=== PATIENT | male | born 1935 | race Caucasian/White ===

== ENCOUNTER 2022-07-20 15:06 | Inpatient (IN) ==
[2022-07-20] MEDS ORDERED: IOPAMIDOL 100 ML BOTTLE IV ONE (15:07)
[2022-07-20 17:35] LABS: POC Calcium, Ionized 1.14 (1.16-1.32); POC Creatinine 0.7 (0.6-1.2); POC Potassium 3.4 (3.3-5.1)
[2022-07-20 19:18] LABS: Basophils # (Auto) 0.02 K/mcL (0.00-0.30); Basophils % (Auto) 0.4 % (0.0-2.0); Eosinophils # (Auto) 0.05 K/mcL (0.00-0.70); Eosinophils % (Auto) 0.9 % (0.0-7.0); Hematocrit 40.8 % (40.1-51.0); Hemoglobin 14.5 g/dL (13.7-17.5); Mean Cell Volume 94.2 fL (80.0-100.0); Mean Corpuscular HGB Conc 35.5 g/dL (31.0-36.0); Mean Platelet Volume 8.9 fL (8.8-12.5); Monocytes # (Auto) 0.52 K/mcL (0.10-0.90); Monocytes % (Auto) 9.6 % (1.0-12.0); Neutrophils % (Auto) 77.5 % (38.0-78.0); Platelet Count 208 K/mcL (140-440); RBC 4.33 M/mcL (4.63-6.08); Red Cell Distribution Width 13.5 % (11.5-14.5); WBC 5.4 K/mcL (4.5-11.0)
--- NOTE | 2022-07-20 19:22 | XRay Report ---
HISTORY: Increased weakness, skin cancer FINDINGS: A thin linear band of scar or discoid atelectasis is present above the left costophrenic sulcus. The lungs are otherwise clear and well expanded. There is no evidence of metastasis. The heart size and pulmonary vasculature are normal. The mediastinum, sumaya and pleura are normal. No skeletal lesion is seen except for mild arthritis in the left shoulder. IMPRESSION: Normal exam Interpreted and Authenticated by: Ezequiel Seaman 07/20/22
[2022-07-20] MEDS ORDERED: 0.9 % SODIUM CHLORIDE 1,000 ML IV ONE (19:27)
[2022-07-20 19:39] LABS: Appearance,Urine CLEAR (Clear); Bilirubin,Urine Negative (Negative); Color,Urine YELLOW; Culture Indicated,Urine No; Glucose,Urine (UA) Negative (Negative); Ketones,Urine 20 mg/dL (Negative); Leukocyte Esterase,Urine Negative /uL (Negative); Mucus,Urine FEW /hpf; Nitrate,Urine Negative (Negative); Protein,Urine Negative (Negative); Urine Blood 0.03 mg/dL (Negative); Urine RBC 7 /hpf (0-3); Urine Squamous Epithelial Cell 0 /hpf (0-4); Urine WBC 6 /hpf (0-4); Urobilinogen,Urine Negative
--- NOTE | 2022-07-20 20:28 | Emergency Department Note ---
Weakness HPI General Chief complaint: Weakness Stated complaint: weakness, N Time Seen by Provider: 07/20/22 16:48 Source: patient Mode of arrival: wheelchair History of Present Illness HPI Narrative: 86-year-old male patient presents to the ER with weakness and general malaise. Patient moved back from to [place] about a month ago and states that since then he has been declining, getting weaker and weaker. He has had a 30 pound uninte ntional weight loss due to poor appetite. He does carry history of atrial fibrillation on chronic Eliquis therapies. He denies chest pain, shortness of breath, cough, dysuria or hematuria, abdominal pain. Related Data Home Medications Medication Instructions Recorded Confirmed Alive Men's 50 Plus Multivit 1 tab PO QDAY 07/20/22 07/21/22 apixaban 5 mg tablet (Eliquis) 5 mg PO BID 07/20/22 07/21/22 [id number] 1 tab PO HS 07/20/22 07/21/22 cholecalciferol (vitamin D3) 25 25 mcg PO QDAY 07/20/22 07/21/22 mcg (1,000 unit) capsule (Vitamin D3) copper 2 mg tablet 2 mg PO QDAY 07/20/22 07/21/22 digoxin 125 mcg (0.125 mg) tablet 125 mcg PO QDAY 07/20/22 07/21/22 diphenhydramine 25 2 tab PO HS PRN Insomnia 07/20/22 07/21/22 mg-acetaminophen 500 mg tablet (Tylenol PM Extra Strength) docusate sodium 100 mg capsule 100 mg PO QDAY 07/20/22 07/21/22 lutein-zeaxanthin 1 tab PO QDAY 07/20/22 07/21/22 midodrine 5 mg tablet 5 mg PO BID 07/20/22 07/21/22 ondansetron 4 mg disintegrating 4 mg PO Q8H PRN Nausea 07/20/22 07/21/22 tablet pantoprazole 40 mg tablet,delayed 40 mg PO QDAY 07/20/22 07/21/22 release silodosin 4 mg capsule 4 mg PO QDAY 07/20/22 07/21/22 tofacitinib 5 mg tablet (Xeljanz) 5 mg PO QDAY 07/20/22 07/21/22 trazodone 50 mg tablet 50 mg PO QHS 07/20/22 07/21/22 metoprolol succinate 25 mg 25 mg PO QDAY 07/21/22 07/21/22 tablet,extended release 24 hr vitamin C-vitamin E capsule 1 cap PO QAM 07/21/22 07/21/22 Allergies Allergy/AdvReac Type Severity Reaction Status Date / Time No Known Drug Allergies Allergy Unverified 07/20/22 15:20 Review of Systems ROS ROS Narrative: Narrative: All systems ED: reviewed and negative except as stated. PFSH Narrative Patient History Narrative: Narrative: Medical/Surgical/Family History All Active Problems (Updated 07/20/22 @ 21:09 by Lalit Cameron MD) Rheumatoid arthritis (Acute) BPH (benign prostatic hyperplasia) (Acute) Atrial fibrillation (Acute) Hyponatremia (Acute) Weakness (Acute) Social History Smoking Status: Never smoker Exam Narrative Narrative: General: AOx3, NAD, nontoxic appearing. Pleasant and conversant. HEENT: PERRL, EOMI, normocephalic. Moist mucous membranes. Normal facies and normal dentition. Chest: Symmetric, no pain to palpation Respiratory: Lungs clear to auscultation bilaterally. No respiratory distress. Unlabored breathing. Heart: Tachycardic rate and irregular rhythm, no murmurs/clicks/rubs. Abdomen: Non-tender, Non distended, normal bowel tones. No organomegaly. Extremities: Warm and well perfused. No edema. DP 2+ bilaterally. No venous stasis. Neuro: No focal deficits. Cranial nerves II-XII grossly normal. Skin: Warm dry, no rashes or lesions, no cyanosis. Psych: Normal mood and affect Heme/Lymph: No abnormal bruising Course Course Course Narrative: 86-year-old male presents for progressive weakness and unintentional weight loss Reevaluation(s) Reevaluation #1: Obtain basic labs, UA, chest x-ray, EKG Reevaluation #2: Chemistry panel with a sodium of 129 UA nitrite and leukocyte esterase negative CBC without leukocytosis or left shift Chest x-ray is negative EKG shows atrial fibrillation with a rate of 97 bpm, no concerning ST segment elevations or abnormalities to suggest ischemia. There is evidence of left ventricular hypertrophy. Reevaluation #3: Patient's heart rate has been as high as the 120s. He may be a little bit dry given his recent history and so we will give him 1 L of IV fluids Vital Signs Vital signs: Vital Signs Temperature 36.5 C 07/20/22 15:12 Pulse Rate 89 07/20/22 15:12 Respiratory Rate 18 07/20/22 15:12 Blood Pressure 131/80 07/20/22 15:12 Pulse Oximetry (%) 97 07/20/22 15:12 Oxygen Delivery Method Room Air 07/20/22 15:12 Temperature 36.9 C 07/20/22 22:35 Pulse Rate 59 L 07/21/22 02:02 Respiratory Rate 15 07/21/22 02:02 Blood Pressure 139/83 07/21/22 02:02 Pulse Oximetry (%) 97 07/21/22 02:02 Oxygen Delivery Method Room Air 07/21/22 02:02 MDM MDM Narrative Medical decision making narrative: Hyponatremia Weakness Dehydration Patient meets criteria for admission. He will need rehab therapies and stabilization of his hyponatremia. I have reached out to the hospitalist for admission and he has been accepted. CT of the chest abdomen pelvis with contras t has been ordered to rule out neoplasm as cause for his unintentional weight loss and hyponatremia. Lab Data 07/20/22 18:30 Labs: Lab Results 07/20/22 07/20/22 07/20/22 Range/Units 17:33 17:33 18:30 WBC 5.4 (4.5-11.0) K/mcL RBC 4.33 L (4.63-6.08) M/mcL Hgb 14.5 (13.7-17.5) g/dL Hct 40.8 (40.1-51.0) % POC Hct 43.0 (41-55) MCV 94.2 (80.0-100.0) fL MCH 33.5 (26.0-34.0) pg MCHC 35.5 (31.0-36.0) g/dL RDW 13.5 (11.5-14.5) % Plt Count 208 (140-440) K/mcL MPV 8.9 (8.8-12.5) fL Immature Gran % (Auto) 0.6 H (0.0-0.5) % Neut % (Auto) 77.5 (38.0-78.0) % Lymph % (Auto) 11.0 L (15.5-49.0) % [place] % (Auto) 9.6 (1.0-12.0) % Eos % (Auto) 0.9 (0.0-7.0) % Baso % (Auto) 0.4 (0.0-2.0) % Lymph # (Auto) 0.60 L (1.50-4.80) K/mcL [place] # (Auto) 0.52 (0.10-0.90) K/mcL Eos # (Auto) 0.05 (0.00-0.70) K/mcL Baso # (Auto) 0.02 (0.00-0.30) K/mcL Immature Gran # 0.03 (0.00-0.05) K/mcl Absolute Neutrophils 4.21 (1.80-8.00) K/mcL POC Sodium 129 L (133-145) POC Potassium 3.4 (3.3-5.1) POC Chloride 92 L (96-108) POC Total CO2 27.0 (22-30) POC BUN 16 (6-20) POC Creatinine 0.7 (0.6-1.2) POC Glucose 113 H (70-105) POC WB Ioniz Calcium 1.14 L (1.16-1.32) Random Cortisol 20.5 ug/dL Urine Color Urine Appearance (Clear) Urine pH (5.0-9.0) Ur Specific [place] (1.000-1.035) Urine Protein (Negative) mg/dL Urine Glucose (UA) (Negative) mg/dL Urine Ketones (Negative) mg/dL Urine Occult Blood (Negative) mg/dL Urine Nitrate (Negative) Urine Bilirubin (Negative) mg/dL Urine Urobilinogen mg/dL Ur Leukocyte Esterase (Negative) /uL Urine RBC (0-3) /hpf Urine WBC (0-4) /hpf Ur Squamous Epith Cells (0-4) /hpf Urine Bacteria (0) /hpf Urine Mucus (None) /hpf Ur Culture Indicated? 07/20/22 Range/Units 18:48 WBC (4.5-11.0) K/mcL RBC (4.63-6.08) M/mcL Hgb (13.7-17.5) g/dL Hct (40.1-51.0) % POC Hct (41-55) MCV (80.0-100.0) fL MCH (26.0-34.0) pg MCHC (31.0-36.0) g/dL RDW (11.5-14.5) % Plt Count (140-440) K/mcL MPV (8.8-12.5) fL Immature Gran % (Auto) (0.0-0.5) % Neut % (Auto) (38.0-78.0) % Lymph % (Auto) (15.5-49.0) % [place] % (Auto) (1.0-12.0) % Eos % (Auto) (0.0-7.0) % Baso % (Auto) (0.0-2.0) % Lymph # (Auto) (1.50-4.80) K/mcL [place] # (Auto) (0.10-0.90) K/mcL Eos # (Auto) (0.00-0.70) K/mcL Baso # (Auto) (0.00-0.30) K/mcL Immature Gran # (0.00-0.05) K/mcl Absolute Neutrophils (1.80-8.00) K/mcL POC Sodium (133-145) POC Potassium (3.3-5.1) POC Chloride (96-108) POC Total CO2 (22-30) POC BUN (6-20) POC Creatinine (0.6-1.2) POC Glucose (70-105) POC WB Ioniz Calcium (1.16-1.32) Random Cortisol ug/dL Urine Color Yellow Urine Appearance Clear (Clear) Urine pH 7.0 (5.0-9.0) Ur Specific [place] 1.010 (1.000-1.035) Urine Protein Negative (Negative) mg/dL Urine Glucose (UA) Negative (Negative) mg/dL Urine Ketones 20 A (Negative) mg/dL Urine Occult Blood 0.03 (Negative) mg/dL Urine Nitrate Negative (Negative) Urine Bilirubin Negative (Negative) mg/dL Urine Urobilinogen Negative mg/dL Ur Leukocyte Esterase Negative (Negative) /uL Urine RBC 7 H (0-3) /hpf Urine WBC 6 H (0-4) /hpf Ur Squamous Epith Cells 0 (0-4) /hpf Urine Bacteria None (0) /hpf Urine Mucus Few A (None) /hpf Ur Culture Indicated? No Discharge Plan Patient/Caregiver Discharge Instructions Pt seen by TAKER AWAY/PA only: Yes Clinical Impression: Hyponatremia, Weakness Patient Disposition: Xfer As Inpt ([facility]) Discharge Date/Time: 07/20/22 22:15 Discharge Location: [facility]
[2022-07-20] MEDS ORDERED: ACETAMINOPHEN/DIPHENHYDRAMINE 1 TABLET PO PRN (20:51)
[2022-07-20] MEDS ORDERED: CALCIUM MAGNESIUM ZINC PO SCH (21:00)
--- NOTE | 2022-07-20 21:14 | Internal Med History&Physical ---
HPI History of Present Illness Patient information: Note initiated : 07/20/22 at 9:02 pm Service Date, if different from initiated Date: [] Patient: Alo Archibald a 86 y/o M admitted on for weakness, N. Chief Complaint: [weakness] Chief complaint: weakness History of present illness: Mr. Archibald is a 86 year old M history of atrial fibrillation's, skin cancer, BPH, rheumatoid arthritis, presenting with general body weakness, rate loss, and loss of appetite over the past month and a half. Patient had an episode of fall about 1 and half month ago. He is coming of 30 pound weight loss over the same period of time. He is coming of progressive general body weakness and loss of appetite over the same. Time. He denies any respiratory symptoms including shortness of breath cough or respiratory wheezings. He is coming of headache right now but denies any other discomfort or pain at the moment. He recently moved from [place] to [place] after the of his last summer. Vital signs significant for tachycardia heart rate up to the 120s beats per minute in atrial fibrillation's. Labs significant for mild hyponatremia serum sodium 129. Chest x-ray unremarkable. Admission request is called for mild troponin natremia as well as general weakness. Constitutional Constitutional: Present headache(s), weakness and weight loss; Absent chills, e xcessive sweating, fatigue or fever(s) Additional comments: loss of appetite EENT Eyes: Absent blurry vision, change in vision, loss of vision or other visual disturbances Ears: Absent decreased hearing or tinnitus Nose, mouth and throat: Absent abnormal hearing, dry mouth, headache(s), nasal congestion or sore throat Cardiovascular Cardiovascular: Absent chest pain, chest pain at rest, edema, irregular heart rhythm or palpatations Respiratory Respiratory: Absent cough, dyspnea or wheezing Gastrointestinal Gastrointestinal: Absent abdominal pain, constipation, diarrhea, nausea or vomiting Musculoskeletal Musculoskeletal: Absent back pain, deformity, limited range of motion, muscle cramps, muscle weakness or numbness Integumentary Integumentary: Absent lesions, rash or wounds Neurological Neurological: Absent focal weakness, headache(s) or numbness Psychiatric Psychiatric: Absent anxiety, depression or hallucinations PFSH PFSH All Active Problems (Updated 07/20/22 @ 21:09 by Lalit Cameron MD) Rheumatoid arthritis (Acute) BPH (benign prostatic hyperplasia) (Acute) Atrial fibrillation (Acute) Hyponatremia (Acute) Weakness (Acute) Social History smoking status: Never smoker MEDS/ALLERGIES Home Medications and Allergies Home Medications Medication Instructions Recorded Confirmed Type Alive Men's 50 Plus Multivit 1 tab PO QDAY 07/20/22 07/20/22 History apixaban 5 mg tablet (Eliquis) 5 mg PO BID 07/20/22 07/20/22 History [id number] 1 tab PO HS 07/20/22 07/20/22 History carbamazepine 100 mg 100 mg PO BID 07/20/22 07/20/22 History capsule,extended release [id number] cholecalciferol (vitamin D3) 25 25 mcg PO QDAY 07/20/22 07/20/22 History mcg (1,000 unit) capsule (Vitamin D3) copper 2 mg tablet 2 mg PO QDAY 07/20/22 07/20/22 History digoxin 125 mcg (0.125 mg) tablet 125 mcg PO QDAY 07/20/22 07/20/22 History diphenhydramine 25 2 tab PO HS PRN Insomnia 07/20/22 07/20/22 History mg-acetaminophen 500 mg tablet (Tylenol PM Extra Strength) docusate sodium 100 mg capsule 100 mg PO QDAY 07/20/22 07/20/22 History lutein-zeaxanthin 1 tab PO QDAY 07/20/22 07/20/22 History metoprolol succ 25 25 tab PO QDAY 07/20/22 07/20/22 History mg-hydrochlorothiazide 12.5 mg tablet,ext.rel 24 hr midodrine 5 mg tablet 5 mg PO BID 07/20/22 07/20/22 History ondansetron 4 mg disintegrating 4 mg PO Q8H PRN Nausea 07/20/22 07/20/22 History tablet pantoprazole 40 mg tablet,delayed 40 mg PO QDAY 07/20/22 07/20/22 History release silodosin 4 mg capsule 4 mg PO QDAY 07/20/22 07/20/22 History tofacitinib 5 mg tablet (Xeljanz) 5 mg PO QDAY 07/20/22 07/20/22 History trazodone 50 mg tablet 50 mg PO QHS 07/20/22 07/20/22 History Allergies Allergy/AdvReac Type Severity Reaction Status Date / Time No Known Drug Allergies Allergy Unverified 07/20/22 15:20 EXAM Constitutional Vitals: Temp Pulse Resp BP Pulse Ox O2 Del Method 36.5 C 81 20 138/92 98 Room Air 07/20/22 15:12 07/20/22 20:46 07/20/22 20:46 07/20/22 20:46 07/20/22 20:46 07/20/22 15:12 General appearance: cooperative and no acute distress Head Head exam: Present atraumatic and normocephalic Eye Eye exam: Present EOMI and PERRL ENT ENT exam: Present mucous membranes moist, normal exam and normal external ear exam Neck Neck exam: Present normal inspection; Absent lymphadenopathy, tenderness or thyromegaly Respiratory Respiratory exam: Absent accessory muscle use, respiratory distress or wheezes Cardiovascular Cardiovascular exam: Present irregular rhythm and tachycardia; Absent JVD GI/Abdominal GI/Abdominal exam: Present normal bowel sounds and soft; Absent organomegaly or tenderness Rectal Rectal exam: Present deferred Extremities Exam Extremities exam: Present full ROM, normal capillary refill and normal inspection; Absent tenderness Neurological Exam Neurological exam: Present alert, CN II-XII intact and oriented X3; Absent motor sensory deficit Psychiatric Psychiatric exam: Present normal affect and normal mood; Absent anxious or depressed Skin Skin exam: Present dry and intact DATA Data Completed and Pending Labs: Labs from last 24 hours 07/20/22 07/20/22 07/20/22 18:48 18:30 17:33 WBC 5.4 RBC 4.33 L Hgb 14.5 Hct 40.8 POC Hct 43.0 MCV 94.2 MCH 33.5 MCHC 35.5 RDW 13.5 Plt Count 208 MPV 8.9 Immature Gran % (Auto) 0.6 H Neut % (Auto) 77.5 Lymph % (Auto) 11.0 L [place] % (Auto) 9.6 Eos % (Auto) 0.9 Baso % (Auto) 0.4 Lymph # (Auto) 0.60 L [place] # (Auto) 0.52 Eos # (Auto) 0.05 Baso # (Auto) 0.02 Immature Gran # 0.03 Absolute Neutrophils 4.21 POC Sodium 129 L POC Potassium 3.4 POC Chloride 92 L POC Total CO2 27.0 POC BUN 16 POC Creatinine 0.7 POC Glucose 113 H POC WB Ioniz Calcium 1.14 L Urine Color Yellow Urine Appearance Clear Urine pH 7.0 Ur Specific [place] 1.010 Urine Protein Negative Urine Glucose (UA) Negative Urine Ketones 20 A Urine Occult Blood 0.03 Urine Nitrate Negative Urine Bilirubin Negative Urine Urobilinogen Negative Ur Leukocyte Esterase Negative Urine RBC 7 H Urine WBC 6 H Ur Squamous Epith Cells 0 Urine Bacteria None Urine Mucus Few A Ur Culture Indicated? No A/P Assessment and plan (1) Hyponatremia: Status: Acute (2) Weakness: Status: Acute (3) Atrial fibrillation: Status: Acute (4) BPH (benign prostatic hyperplasia): Status: Acute (5) Rheumatoid arthritis: Status: Acute Narrative A/P Narrative: Assessment and Plans: 1. General weakness: Observation PCU Physical therapy evaluation and treatment Treat any underlying cause for weakness, see below Whole body CT w/ contrast to rule out malignancy such as non small cell cancer Consider Megace as appetite stimulant if active cancer is identified 2. Mild hyponatremia: NS@100cc/hr CMP in the morning to trend serum sodium level Whole body CT w/ contrast to rule out malignancy such as non small cell cancer TSH with reflexive free T4 Cortisol, random and AM 3. Atrial fibrillation: Metoprolol ER Digoxin Eliquis 4. Rheumatoid arthritis: Tofacitinib 5. BPH: Silodosin GI ppx: not currently indicated DVT ppx: Eliquis Code status: Full Prognosis: guarded Disposition: observation PCU; PT Time Spent With Patient Time: Total time spent is greater than 50% in coordination of care (as documented) at patient's floor/unit and/or counseling patient: Initial: Total time with patient: 55 - 74 minutes
[2022-07-20] MEDS ORDERED: ONDANSETRON 4 MG/2 ML VIAL IV PRN (22:34)
[2022-07-20] MEDS ORDERED: LACTULOSE 20 GM/30 ML ORAL.SOL PO PRN (22:34)
[2022-07-20] MEDS ORDERED: IPRATROPIUM/ALBUTEROL 3 ML AMPUL.NEB NEB PRN (22:34)
[2022-07-20] MEDS ORDERED: METOPROLOL TARTRATE 5 MG/5 ML VIAL IV ONE (22:39)
[2022-07-20] MEDS: METOPROLOL TARTRATE 5 MG/5 ML VIAL IV PRN (22:40)
[2022-07-20] MEDS: 0.9 % SODIUM CHLORIDE 1,000 ML IV SCH (22:57)
[2022-07-20] MEDS: DOCUSATE SODIUM 100 MG CAPSULE PO SCH (22:57)
[2022-07-20] MEDS: traZODone HCL 50 MG TABLET PO SCH (22:58)
[2022-07-20] MEDS: 0.9 % SODIUM CHLORIDE 10 ML SYRINGE IV SCH (22:58)
[2022-07-20] MEDS: APIXABAN 5 MG TABLET PO SCH (23:18)
[2022-07-21] MEDS: ACETAMINOPHEN 325 MG TABLET PO PRN ×3 (01:25→20:40)
[2022-07-21] MEDS: diphenhydrAMINE 25 MG CAPSULE PO PRN ×2 (01:26→20:41)
[2022-07-21] MEDS ORDERED: METOPROLOL TARTRATE 5 MG/5 ML VIAL IV ONE (04:53)
[2022-07-21] MEDS: METOPROLOL TARTRATE 5 MG/5 ML VIAL IV PRN ×2 (04:56→16:24)
[2022-07-21] MEDS: 0.9 % SODIUM CHLORIDE 10 ML SYRINGE IV SCH ×3 (05:11→20:42)
[2022-07-21] MEDS: PANTOPRAZOLE 40 MG TABLET PO SCH (07:11)
--- NOTE | 2022-07-21 07:41 | Cat Scan Report ---
History: Hyponatremia, weight loss, skin cancer TECHNIQUE: Following injection of intravenous nonionic contrast the patient was imaged during the portal venous phase from the thoracic inlet through the symphysis pubis. Sagittal, coronal and MIPS images were acquired. Five minute delayed images of the upper abdomen were also obtained. The radiation exposure was limited using dose reduction technology. FINDINGS: Above the minor fissure, in the anterior segment of the right upper lobe there is a spiculated 1 cm nodule. This was not identifiable on the preceding chest x-ray. There is no associated adenopathy in the mediastinum or sumaya. There are linear opacities in the posterior and medial basal segments of the right lower lobe and inferior segment of the lingula which may be a combination of scar and discoid atelectasis. There is no evidence of pneumonia or pleural effusion. No emphysema is present. The aorta is normal. The heart is normal in size and contour. Small amount of plaque is present in the left main coronary. ABDOMEN: There are multiple simple cysts scattered throughout the liver. Largest is in the left lobe measures 3.5 cm. No solid mass is present. The overall size of the liver is normal and the parenchyma is homogeneous. The gallbladder is normal with no calcified stones or thickening of the wall. The bile ducts are nondilated. The spleen is normal in size and homogeneous. The adrenals are normal and symmetric. There are multiple renal cysts, left greater than right. The largest is located posteriorly in the upper pole of the left kidney and measures 6.3 x 8.7 cm. No solid mass or hydronephrosis are present in either kidney. There is a solitary nonobstructing calyceal stone located anteriorly in the lower third of the right kidney, which measures 6 x 7 mm. Urinary bladder is unopacified but appears normal. The prostate is very small. Has the patient received therapy for prostate in the past? No mass, adenopathy, ascites or abscess are present in the abdomen or pelvis. There are multiple noninflamed diverticula in the sigmoid colon and there is a moderate amount stool in the large bowel. Small intestine is normal. The stomach appears normal. 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 No bone metastasis are detected. IMPRESSION: 1 cm mass in the anterior segment right upper lobe. This could be a lung cancer. If the patient is a candidate for therapy, this could be further evaluated by PET/CT. Cysts in the liver and both kidneys. Diverticulosis without diverticulitis Interpreted and Authenticated by: Ezequiel Seaman 07/21/22
[2022-07-21] MEDS ORDERED: DIGOXIN 125 MCG TABLET PO SCH (09:00)
[2022-07-21] MEDS ORDERED: COPPER 2 MG PO SCH (09:00)
[2022-07-21] MEDS ORDERED: LUTEIN ZEAXANTHIN PO SCH (09:00)
[2022-07-21] MEDS ORDERED: DOCUSATE SODIUM 100 MG CAPSULE PO SCH (09:00)
[2022-07-21] MEDS: 0.9 % SODIUM CHLORIDE 1,000 ML IV SCH ×2 (09:04→19:19)
[2022-07-21] MEDS: APIXABAN 5 MG TABLET PO SCH ×2 (09:05→20:41)
[2022-07-21] MEDS: MIDODRINE 5 MG TABLET PO SCH ×2 (09:05→17:41)
[2022-07-21] MEDS: VITAMIN D3 25 MCG TABLET PO SCH (09:05)
[2022-07-21] MEDS: METOPROLOL SUCCINATE 25 MG TAB.XL.24H PO SCH (09:05)
[2022-07-21] MEDS: MULTIVIT,THER IRON,CA,FA & MIN 1 TABLET PO SCH (09:05)
[2022-07-21] MEDS: HYDROCHLOROTHIAZIDE 12.5 MG CAPSULE PO SCH (09:05)
[2022-07-21] MEDS: DOCUSATE SODIUM 100 MG CAPSULE PO SCH ×2 (09:08→20:40)
[2022-07-21 10:22] LABS: Basophils # (Auto) 0.04 K/mcL (0.00-0.30); Basophils % (Auto) 0.9 % (0.0-2.0); Eosinophils # (Auto) 0.06 K/mcL (0.00-0.70); Eosinophils % (Auto) 1.4 % (0.0-7.0); Hemoglobin 13.8 g/dL (13.7-17.5); Lymphocytes # (Auto) 0.62 K/mcL (1.50-4.80); Lymphocytes % (Auto) 14.3 % (15.5-49.0); Mean Cell Volume 94.4 fL (80.0-100.0); Mean Corpuscular HGB Conc 35.4 g/dL (31.0-36.0); Mean Platelet Volume 8.9 fL (8.8-12.5); Monocytes # (Auto) 0.48 K/mcL (0.10-0.90); Neutrophils % (Auto) 71.9 % (38.0-78.0); Platelet Count 189 K/mcL (140-440); RBC 4.13 M/mcL (4.63-6.08); Red Cell Distribution Width 13.6 % (11.5-14.5); WBC 4.4 K/mcL (4.5-11.0)
[2022-07-21 10:36] LABS: ALT/SGPT 28 U/L (<40); AST/SGOT 19 U/L (<40); Albumin 2.8 gm/dL (3.2-5.2); Albumin/Globulin Ratio 0.9 (1.0-2.3); Alkaline Phosphatase 78 U/L (39-117); Bilirubin,Total 0.3 mg/dL (0.1-1.0); Blood Urea Nitrogen 10 mg/dL (8-23); Calcium 8.4 mg/dL (8.6-10.4); Carbon Dioxide 20 mmol/L (22-30); Chloride 99 mmol/L (96-108); Glomerular Filtration Rate 90; Glucose 97 mg/dL (70-105)
--- NOTE | 2022-07-21 10:36 | Internal Med Progress Note ---
SUBJECTIVE Subjective Patient information: Note initiated : 07/21/22 at 10:32 am Service Date, if different from initiated Date: [] Patient: Alo Archibald a 86 y/o M admitted on 07/20/22 for weakness, N. Chief Complaint: [] Interval history: Mr. Archibald is a 86 year old M history of atrial fibrillation's, skin cancer, BPH, rheumatoid arthritis, presenting with general body weakness, rate loss, and loss of appetite over the past month and a half. Patient had an episode of fall about 1 and half month ago. He is coming of 30 pound weight loss over the same period of time. He is coming of progressive general body weakness and loss of appetite over the same. Time. He denies any respiratory symptoms including shortness of breath cough or respiratory wheezings. He is coming of headache right now but denies any other discomfort or pain at the moment. He recently moved from [place] to [place] after the of his last summer. Vital signs significant for tachycardia heart rate up to the 120s beats per minute in atrial fibrillation's. Labs significant for mild hyponatremia serum sodium 129. Chest x-ray unremarkable. Admission request is called for mild troponin natremia as well as general weakness. 07/21: Patient was tested positive for COVID-pneumonia but he is tolerating room air. Whole-body CT with contrast showing a 1 cm mass in the right upper quadrant of the lung. No any satellite masses seen. Patient is still committing of profound weakness. Morning labs pending. He denies any shortness of breath or cough or wheezing. He is coming of chills but denies any fever or diaphoresis. Physical therapist evaluated the patient and recommend SNF placement. Patient said that he need to talk to his family regarding discharged plan. We changed the patient from observation to MedSurg status to PCU while awaiting placement decisions. Continue IV fluid for hyponatremia while awaiting morning labs. Since the patient has been symptomatic for more than 10 days from COVID- pneumonia, will not initiate Paxlovid or Remdesivir. Constitutional Vitals: Vital Signs Temp Pulse Resp BP Pulse Ox O2 Del Method 36.4 C 60 13 148/77 98 Room Air 07/21/22 07:04 07/21/22 08:01 07/21/22 10:01 07/21/22 10:01 07/21/22 10:01 07/21/22 10:01 Period Temp Pulse Resp BP Sys/Suarez Pulse Ox O2 Del Method O2 Flow Rate Last 24 Hr 36.4 C-36.9 C 59-143 11-21 98-167/77-116 93-99 Room Air-Room Air Intake and Output 07/20/22 07/21/22 07/21/22 19:59 03:59 11:59 Intake Total 1000 1940 Output Total 325 1025 Balance 675 915 Weight 78.471 kg 79.243 kg Intake & Output: Intake & Output 07/20/22 07/21/22 07/21/22 19:59 03:59 11:59 Intake Total 1000 1940 Output Total 325 1025 Balance 675 915 Weight 78.471 kg 79.243 kg Intake: IV 1000 1000 Sodium Chloride 0.9% 1,000 ml @ 1000 1000 100 mls/hr IV .Q10H [facility] Rx#: [id number] Oral 940 Output: Void Amount 325 1025 Other: Urine Appearance Clear Clear Urine Color Bright Yellow Yellow Urine Odor Strong General appearance: cooperative, disheveled and no acute distress Head Head exam: Present atraumatic and normal inspection Eye Eye exam: Present normal appearance ENT ENT exam: Present mucous membranes moist, normal exam and normal external ear e xam Neck Neck exam: Present normal inspection Respiratory Respiratory exam: Present normal respiratory exam Cardiovascular Cardiovascular exam: Present irregular rhythm GI/Abdominal GI/Abdominal exam: Present normal bowel sounds Back Exam Back exam: Present normal inspection Neurological Exam Neurological exam: Present alert and oriented X3 Skin Skin exam: Present intact and warm OBJ DATA Labs 07/21/22 06:04 07/21/22 06:04 Labs: Abnormal Lab Results 07/21/22 07/20/22 07/20/22 06:04 18:48 18:30 WBC 4.4 L RBC 4.13 L 4.33 L Hct 39.0 L Immature Gran % (Auto) 0.6 H Lymph % (Auto) 14.3 L 11.0 L Lymph # (Auto) 0.62 L 0.60 L POC Sodium POC Chloride POC Glucose POC WB Ioniz Calcium Urine Ketones 20 A Urine RBC 7 H Urine WBC 6 H Urine Mucus Few A 07/20/22 17:33 WBC RBC Hct Immature Gran % (Auto) Lymph % (Auto) Lymph # (Auto) POC Sodium 129 L POC Chloride 92 L POC Glucose 113 H POC WB Ioniz Calcium 1.14 L Urine Ketones Urine RBC Urine WBC Urine Mucus Meds: Medications Acetaminophen (Acetaminophen 325 Mg Tablet) 650 mg PO HSP PRN PRN Reason: Insomnia Last Admin: 07/21/22 01:25 Dose: 650 mg Acetaminophen (Acetaminophen 325 Mg Tablet) 650 mg PO Q6HP PRN; Protocol PRN Reason: Per Pain Protocol/Fever > 101 Last Admin: 07/21/22 07:09 Dose: 650 mg Albuterol/Ipratropium (Ipratropium/Albuterol 3 Ml Ampul.Neb) 3 ml NEB Q4HRT PRN PRN Reason: Wheezing Apixaban (Apixaban 5 Mg Tablet) 5 mg PO BID [facility] Last Admin: 07/21/22 09:05 Dose: 5 mg Digoxin (Digoxin 125 Mcg Tablet) 125 mcg PO QDAY [facility] Last Admin: 07/21/22 09:05 Dose: 125 mcg Diphenhydramine HCl (Diphenhydramine 25 Mg Capsule) 25 mg PO HSP PRN PRN Reason: Insomnia Last Admin: 07/21/22 01:26 Dose: 25 mg Docusate Sodium (Docusate Sodium 100 Mg Capsule) 100 mg PO BID [facility] Last Admin: 07/21/22 09:08 Dose: 100 mg Hydrochlorothiazide (Hydrochlorothiazide 12.5 Mg Capsule) 12.5 mg PO DAILY [facility] Last Admin: 07/21/22 09:05 Dose: 12.5 mg Sodium Chloride (Sodium Chloride 0.9%) 1,000 mls @ 100 mls/hr IV .Q10H [facility] Last Admin: 07/21/22 09:04 Dose: 100 mls/hr Iron Carb/Multivit/[place]/Folic Acid (Multivit,Ther Iron,Ca,Fa & Min 1 Tablet) 1 tab PO QDAY [facility] Last Admin: 07/21/22 09:05 Dose: 1 tab Lactulose (Lactulose 20 Gm/30 Ml Oral.Aileen) 10 gm PO DAILYP PRN PRN Reason: Constipation Metoprolol Succinate (Metoprolol Succinate 25 Mg Tab.Xl.24h) 25 mg PO DAILY [facility] Last Admin: 07/21/22 09:05 Dose: 25 mg Metoprolol Tartrate (Metoprolol Tartrate 5 Mg/5 Ml Vial) 5 mg IV Q1H PRN PRN Reason: Tachyarrhythmias Last Admin: 07/21/22 04:56 Dose: 5 mg Midodrine (Midodrine 5 Mg Tablet) 5 mg PO BID@0900,1800 [facility] Last Admin: 07/21/22 09:05 Dose: 5 mg Ondansetron HCl (Ondansetron 4 Mg/2 Ml Vial) 4 mg IV Q4HP PRN; Protocol PRN Reason: Nausea And Vomiting Pantoprazole Sodium (Pantoprazole 40 Mg Tablet) 40 mg PO QAMAC [facility] Last Admin: 07/21/22 07:11 Dose: 40 mg Silodosin 4 Mg (Capsule) 1 dose PO QDAY [facility] Tofacitinib [Xeljanz (] 5 Mg Tablet) 1 dose PO QDAY [facility] Potassium Chloride (Potassium Chloride 20 Meq Tablet) 20 meq PO BIDCC [facility] Senna (Sennosides 1 Tablet) 2 tab PO HSP PRN PRN Reason: Constipation Sodium Chloride (0.9 % Sodium Chloride 10 Ml Syringe) 10 ml IV Q8 [facility] Last Admin: 07/21/22 05:11 Dose: Not Given Trazodone HCl (Trazodone Hcl 50 Mg Tablet) 50 mg PO QHS [facility] Last Admin: 07/20/22 22:58 Dose: Not Given Vitamin D (Vitamin D3 25 Mcg Tablet) 25 mcg PO QDAY [facility] Last Admin: 07/21/22 09:05 Dose: 25 mcg A/P Assessment and plan (1) Hyponatremia: Status: Acute (2) Weakness: Status: Acute (3) Atrial fibrillation: Status: Acute (4) BPH (benign prostatic hyperplasia): Status: Acute (5) Rheumatoid arthritis: Status: Acute (6) Mass of upper lobe of right lung: Status: Acute (7) COVID: Status: Acute Narrative A/P Narrative: Assessment and Plans: 1. General weakness: Inpatient PCU Physical therapy evaluation and treatment-->recs. SNF placement Treat any underlying cause for weakness, see below Whole body CT w/ contrast to rule out malignancy such as non small cell cancer Consider Megace as appetite stimulant if active cancer is identified 2. Mild hyponatremia: NS@100cc/hr CMP in the morning to trend serum sodium level Whole body CT w/ contrast to rule out malignancy such as non small cell cancer, see #6 TSH with reflexive free T4, 0.98 Cortisol, random and AM, 20.5 and 17.9, respectively 3. Atrial fibrillation: Metoprolol ER Digoxin Eliquis 4. Rheumatoid arthritis: Tofacitinib 5. BPH: Silodosin 6. Right upper lobe lung mass measuring 1cm: Highly suspect malignancy Will follow up with PET/CT outpatient in [facility] 7. CoVID infection: Since the patient has been symptomatic for more than 10 days from COVID- pneumonia, will not initiate Paxlovid or Remdesivir Isolation: airborne and contact Supplemental oxygen therapy as needed GI ppx: not currently indicated DVT ppx: Eliquis Code status: Full Prognosis: guarded Disposition: Inpatient PCU; PT-->SNF Time Spent With Patient Time: Total time spent is greater than 50% in coordination of care (as documented) at patient's floor/unit and/or counseling patient: Subsequent: Total time with patient: 35 - 49 minutes QUALITY VTE Deep Vein Thrombosis/Pulmonary Embolism Present on Admission: No
[2022-07-21] MEDS: TOFACITINIB 5 MG PO SCH (13:00)
[2022-07-21] MEDS: POTASSIUM CHLORIDE 20 MEQ TABLET PO SCH (17:41)
[2022-07-21] MEDS ORDERED: METOPROLOL TARTRATE 5 MG/5 ML VIAL IV PRN (19:08)
[2022-07-21 19:38] LABS: Digoxin 0.7 ng/mL
[2022-07-21] MEDS: traZODone HCL 50 MG TABLET PO SCH (20:42)
[2022-07-22] MEDS: ACETAMINOPHEN 325 MG TABLET PO PRN ×2 (00:32→05:35)
[2022-07-22] MEDS: 0.9 % SODIUM CHLORIDE 1,000 ML IV SCH (05:37)
[2022-07-22] MEDS: 0.9 % SODIUM CHLORIDE 10 ML SYRINGE IV SCH ×3 (05:53→20:54)
[2022-07-22 07:05] LABS: Basophils # (Auto) 0.04 K/mcL (0.00-0.30); Basophils % (Auto) 0.8 % (0.0-2.0); Eosinophils # (Auto) 0.08 K/mcL (0.00-0.70); Eosinophils % (Auto) 1.7 % (0.0-7.0); Hematocrit 44.2 % (40.1-51.0); Hemoglobin 15.1 g/dL (13.7-17.5); Lymphocytes # (Auto) 0.97 K/mcL (1.50-4.80); Lymphocytes % (Auto) 20.6 % (15.5-49.0); Mean Cell Volume 96.7 fL (80.0-100.0); Mean Corpuscular HGB Conc 34.2 g/dL (31.0-36.0); Mean Platelet Volume 8.8 fL (8.8-12.5); Monocytes # (Auto) 0.61 K/mcL (0.10-0.90); Monocytes % (Auto) 12.9 % (1.0-12.0); Neutrophils % (Auto) 63.4 % (38.0-78.0); Platelet Count 177 K/mcL (140-440); RBC 4.57 M/mcL (4.63-6.08); Red Cell Distribution Width 13.8 % (11.5-14.5); WBC 4.7 K/mcL (4.5-11.0)
[2022-07-22 07:29] LABS: ALT/SGPT 34 U/L (<40); AST/SGOT 26 U/L (<40); Albumin 2.9 gm/dL (3.2-5.2); Albumin/Globulin Ratio 0.9 (1.0-2.3); Alkaline Phosphatase 83 U/L (39-117); Bilirubin,Total 0.4 mg/dL (0.1-1.0); Blood Urea Nitrogen 7 mg/dL (8-23); Calcium 8.2 mg/dL (8.6-10.4); Carbon Dioxide 23 mmol/L (22-30); Chloride 97 mmol/L (96-108); Globulin 3.2 gm/dL (2.2-3.7); Glomerular Filtration Rate 90; Glucose 90 mg/dL (70-105)
[2022-07-22] MEDS: PANTOPRAZOLE 40 MG TABLET PO SCH (07:46)
[2022-07-22] MEDS: POTASSIUM CHLORIDE 20 MEQ TABLET PO SCH ×2 (07:46→16:48)
[2022-07-22] MEDS: HYDROCHLOROTHIAZIDE 12.5 MG CAPSULE PO SCH (08:33)
[2022-07-22] MEDS: MULTIVIT,THER IRON,CA,FA & MIN 1 TABLET PO SCH (08:33)
[2022-07-22] MEDS: DOCUSATE SODIUM 100 MG CAPSULE PO SCH ×2 (08:33→20:53)
[2022-07-22] MEDS: MIDODRINE 5 MG TABLET PO SCH ×2 (08:33→17:52)
[2022-07-22] MEDS: APIXABAN 5 MG TABLET PO SCH ×2 (08:33→20:54)
[2022-07-22] MEDS: TOFACITINIB 5 MG PO SCH (08:34)
[2022-07-22] MEDS: METOPROLOL SUCCINATE 25 MG TAB.XL.24H PO SCH ×3 (08:34→20:53)
[2022-07-22] MEDS: VITAMIN D3 25 MCG TABLET PO SCH (08:34)
[2022-07-22] MEDS ORDERED: MEGESTROL ACETATE 40 MG TABLET PO SCH (09:00)
[2022-07-22] MEDS ORDERED: METOPROLOL SUCCINATE 25 MG TAB.XL.24H PO SCH (09:00)
[2022-07-22] MEDS ORDERED: [UNRECOGNIZED DRUG - OTHER] PO SCH (09:00)
--- NOTE | 2022-07-22 09:05 | Internal Med Progress Note ---
SUBJECTIVE Subjective Patient information: Note initiated : 07/22/22 at 9:00 am Service Date, if different from initiated Date: [] Patient: Alo Archibald a 86 y/o M admitted on 07/21/22 for weakness, N. Chief Complaint: [] Interval history: Mr. Archibald is a 86 year old M history of atrial fibrillation's, skin cancer, BPH, rheumatoid arthritis, presenting with general body weakness, rate loss, and loss of appetite over the past month and a half. Patient had an episode of fall about 1 and half month ago. He is coming of 30 pound weight loss over the same period of time. He is coming of progressive general body weakness and loss of appetite over the same. Time. He denies any respiratory symptoms including shortness of breath cough or respiratory wheezings. He is coming of headache right now but denies any other discomfort or pain at the moment. He recently moved from [place] to [place] after the of his last summer. Vital signs significant for tachycardia heart rate up to the 120s beats per minute in atrial fibrillation's. Labs significant for mild hyponatremia serum sodium 129. Chest x-ray unremarkable. Admission request is called for mild troponin natremia as well as general weakness. 07/21: Patient was tested positive for COVID-pneumonia but he is tolerating room air. Whole-body CT with contrast showing a 1 cm mass in the right upper quadrant of the lung. No any satellite masses seen. Patient is still committing of profound weakness. Morning labs pending. He denies any shortness of breath or cough or wheezing. He is coming of chills but denies any fever or diaphoresis. Physical therapist evaluated the patient and recommend SNF placement. Patient said that he need to talk to his family regarding discharged plan. We changed the patient from observation to MedSurg status to PCU while awaiting placement decisions. Continue IV fluid for hyponatremia while awaiting morning labs. Since the patient has been symptomatic for more than 10 days from COVID- pneumonia, will not initiate Paxlovid or Remdesivir. 07/22: Low-grade fever with Tmax 37.5 overnight. Patient is currently tolerating room air. Currently heart rate is up to 120s to 130s beats per minute at rest. Labs significant for serum sodium level 133 and potassium level 3.3. Patient has a poor appetite he said that the food does not taste good to him. He is coming of general weakness. He is complaining of depressions. He denies any shortness of breath cough or wheezing. He denies having any chills or diaphoresis. Saline lock the patient. Continue potassium oral replacement while checking chemistry including magnesium. Increased metoprolol succinate from 25 Mg p.o. daily to twice daily for better rate control while continuing Eliquis for anticoagulations. Add Lexapro as antidepressant. Pending outpatient PET/CT to evaluate her right upper lobe lung mass. Pending SNF placement. Constitutional Vitals: Vital Signs Temp Pulse Resp BP Pulse Ox O2 Del Method 37.3 C H 95 H 14 148/99 94 Room Air 07/22/22 04:01 07/22/22 06:01 07/22/22 06:01 07/22/22 06:01 07/22/22 06:01 07/22/22 04:01 Period Temp Pulse Resp BP Sys/Suarez Pulse Ox O2 Del Method O2 Flow Rate Last 24 Hr 36.7 C-37.5 C 48-138 12-27 114-148/72-99 94-100 Room Air-Room Air Intake and Output 07/21/22 07/22/22 07/22/22 19:59 03:59 11:59 Intake Total 1477 1420 Output Total 625 1100 700 Balance 852 -1100 720 Weight 80.739 kg Intake & Output: Intake & Output 07/21/22 07/22/22 07/22/22 19:59 03:59 11:59 Intake Total 1477 1420 Output Total 625 1100 700 Balance 852 -1100 720 Weight 80.739 kg Intake: Nourishment/Supplement quantity 237 (ml) IV 1000 1000 Sodium Chloride 0.9% 1,000 ml @ 1000 1000 100 mls/hr IV .Q10H [facility] Rx#: [id number] Oral 240 420 Output: Void Amount 625 1100 700 Other: Meal Nourishment/Supplement Percent of Meal Consumed 25% Feeding Ability Independent Nourishment/Supplement name ensure clear Urine Appearance Clear Clear Clear Urine Color Yellow Pale Yellow Stool Size Large Stool Color Brown Stool Consistency Formed # Voids 1 # Bowel Movements 1 Head Head exam: Present atraumatic and normal inspection Eye Eye exam: Present normal appearance ENT ENT exam: Present mucous membranes moist, normal exam and normal external ear exam Neck Neck exam: Present normal inspection Respiratory Respiratory exam: Present normal respiratory exam Cardiovascular Cardiovascular exam: Present irregular rhythm and tachycardia GI/Abdominal GI/Abdominal exam: Present normal bowel sounds Back Exam Back exam: Present normal inspection Neurological Exam Neurological exam: Present alert and oriented X3 Psychiatric Psychiatric exam: Present depressed Skin Skin exam: Present intact and warm OBJ DATA Labs 07/22/22 05:24 07/22/22 05:24 Labs: Abnormal Lab Results 07/22/22 07/22/22 07/21/22 05:24 05:24 06:04 WBC RBC 4.57 L Hct Immature Gran % (Auto) 0.6 H Lymph % (Auto) [place] % (Auto) 12.9 H Lymph # (Auto) 0.97 L POC Sodium POC Chloride Carbon Dioxide 20 L BUN 7 L Creatinine 0.6 L 0.6 L POC Glucose Calcium 8.2 L 8.4 L POC WB Ioniz Calcium Total Protein 5.8 L Albumin 2.9 L 2.8 L Albumin/Globulin Ratio 0.9 L 0.9 L Urine Ketones Urine RBC Urine WBC Urine Mucus 07/21/22 07/20/22 07/20/22 06:04 18:48 18:30 WBC 4.4 L RBC 4.13 L 4.33 L Hct 39.0 L Immature Gran % (Auto) 0.6 H Lymph % (Auto) 14.3 L 11.0 L [place] % (Auto) Lymph # (Auto) 0.62 L 0.60 L POC Sodium POC Chloride Carbon Dioxide BUN Creatinine POC Glucose Calcium POC WB Ioniz Calcium Total Protein Albumin Albumin/Globulin Ratio Urine Ketones 20 A Urine RBC 7 H Urine WBC 6 H Urine Mucus Few A 07/20/22 17:33 WBC RBC Hct Immature Gran % (Auto) Lymph % (Auto) [place] % (Auto) Lymph # (Auto) POC Sodium 129 L POC Chloride 92 L Carbon Dioxide BUN Creatinine POC Glucose 113 H Calcium POC WB Ioniz Calcium 1.14 L Total Protein Albumin Albumin/Globulin Ratio Urine Ketones Urine RBC Urine WBC Urine Mucus Meds: Medications Acetaminophen (Acetaminophen 325 Mg Tablet) 650 mg PO HSP PRN PRN Reason: Insomnia Last Admin: 07/22/22 05:35 Dose: 650 mg Acetaminophen (Acetaminophen 325 Mg Tablet) 650 mg PO Q6HP PRN; Protocol PRN Reason: Per Pain Protocol/Fever > 101 Last Admin: 07/21/22 07:09 Dose: 650 mg Albuterol/Ipratropium (Ipratropium/Albuterol 3 Ml Ampul.Neb) 3 ml NEB Q4HRT PRN PRN Reason: Wheezing Apixaban (Apixaban 5 Mg Tablet) 5 mg PO BID [facility] Last Admin: 07/22/22 08:33 Dose: 5 mg Digoxin (Digoxin 125 Mcg Tablet) 125 mcg PO QDAY [facility] Diphenhydramine HCl (Diphenhydramine 25 Mg Capsule) 25 mg PO HSP PRN PRN Reason: Insomnia Last Admin: 07/21/22 20:41 Dose: 25 mg Docusate Sodium (Docusate Sodium 100 Mg Capsule) 100 mg PO BID [facility] Last Admin: 07/22/22 08:33 Dose: 100 mg Escitalopram Oxalate (Escitalopram 10 Mg Tablet) 10 mg PO DAILY [facility] Hydrochlorothiazide (Hydrochlorothiazide 12.5 Mg Capsule) 12.5 mg PO DAILY [facility] Last Admin: 07/22/22 08:33 Dose: 12.5 mg Iron Carb/Multivit/[employer]/Folic Acid (Multivit,Ther Iron,Ca,Fa & Min 1 Tablet) 1 tab PO QDAY [facility] Last Admin: 07/22/22 08:33 Dose: 1 tab Lactulose (Lactulose 20 Gm/30 Ml Oral.Aileen) 10 gm PO DAILYP PRN PRN Reason: Constipation Metoprolol Succinate (Metoprolol Succinate 25 Mg Tab.Xl.24h) 25 mg PO BID [facility] Midodrine (Midodrine 5 Mg Tablet) 5 mg PO BID@0900,1800 [facility] Last Admin: 07/22/22 08:33 Dose: Not Given Ondansetron HCl (Ondansetron 4 Mg/2 Ml Vial) 4 mg IV Q4HP PRN; Protocol PRN Reason: Nausea And Vomiting Pantoprazole Sodium (Pantoprazole 40 Mg Tablet) 40 mg PO QAMAC [facility] Last Admin: 07/22/22 07:46 Dose: 40 mg Silodosin 4 Mg (Capsule) 1 dose PO QDAY [facility] Last Admin: 07/22/22 08:34 Dose: 1 dose Tofacitinib [Xeljanz (] 5 Mg Tablet) 1 dose PO QDAY [facility] Last Admin: 07/22/22 08:34 Dose: 1 dose Potassium Chloride (Potassium Chloride 20 Meq Tablet) 20 meq PO BIDCC [facility] Last Admin: 07/22/22 07:46 Dose: 20 meq Senna (Sennosides 1 Tablet) 2 tab PO HSP PRN PRN Reason: Constipation Sodium Chloride (0.9 % Sodium Chloride 10 Ml Syringe) 10 ml IV Q8 [facility] Last Admin: 07/22/22 05:53 Dose: Not Given Trazodone HCl (Trazodone Hcl 50 Mg Tablet) 50 mg PO QHS [facility] Last Admin: 07/21/22 20:42 Dose: Not Given Vitamin D (Vitamin D3 25 Mcg Tablet) 25 mcg PO QDAY [facility] Last Admin: 07/22/22 08:34 Dose: 25 mcg A/P Assessment and plan (1) Hyponatremia: Status: Acute (2) Weakness: Status: Acute (3) Atrial fibrillation: Status: Acute (4) BPH (benign prostatic hyperplasia): Status: Acute (5) Rheumatoid arthritis: Status: Acute (6) Mass of upper lobe of right lung: Status: Acute (7) COVID: Status: Acute (8) Hypokalemia: Status: Acute (9) Depression: Status: Acute Narrative A/P Narrative: Assessment and Plans: 1. General weakness: Inpatient PCU Physical therapy evaluation and treatment-->recs. SNF placement Treat any underlying cause for weakness, see below Whole body CT w/ contrast to rule out malignancy such as non small cell cancer Consider Megace as appetite stimulant if active cancer is identified 2. Mild hyponatremia: Saline lock CMP in the morning to trend serum sodium level Whole body CT w/ contrast to rule out malignancy such as non small cell cancer, see #6 TSH with reflexive free T4, 0.98 Cortisol, random and AM, 20.5 and 17.9, respectively 3. Atrial fibrillation: Metoprolol ER, increase from 25mg PO daily to BID for better rate control Digoxin Eliquis 4. Rheumatoid arthritis: Tofacitinib 5. BPH: Silodosin 6. Right upper lobe lung mass measuring 1cm: Highly suspect malignancy Will follow up with PET/CT outpatient in [facility] 7. CoVID infection: Since the patient has been symptomatic for more than 10 days from COVID-pn [place], will not initiate Paxlovid or Remdesivir Isolation: airborne and contact Supplemental oxygen therapy as needed 8. Hypokalemia: Potassium chloride oral replacement CMP daily to trend serum potassium level. Also check serum Mg level and replace as needed 9. Depression: DDx: Grief from losing last year Lexapro GI ppx: not currently indicated DVT ppx: Eliquis Code status: Full Prognosis: guarded Disposition: Inpatient PCU; PT-->SNF Time Spent With Patient Time: Total time spent is greater than 50% in coordination of care (as documented) at patient's floor/unit and/or counseling patient: Subsequent: Total time with patient: 35 - 49 minutes QUALITY VTE Deep Vein Thrombosis/Pulmonary Embolism Present on Admission: No
[2022-07-22] MEDS: ESCITALOPRAM 10 MG TABLET PO SCH (09:31)
[2022-07-22] MEDS ORDERED: MEGESTROL ACETATE 400 MG/10 ML UDC PO SCH (10:00)
[2022-07-22] MEDS ORDERED: METOPROLOL TARTRATE 5 MG/5 ML VIAL IV PRN (10:07)
[2022-07-22] MEDS: IBUPROFEN 600 MG TABLET PO PRN (10:09)
[2022-07-22] MEDS: MEGESTROL ACETATE 400 MG/10 ML UDC PO SCH (10:09)
--- NOTE | 2022-07-22 12:21 | EKG ---
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
[2022-07-22] MEDS: DIGOXIN 125 MCG TABLET PO SCH (16:48)
[2022-07-22] MEDS: traZODone HCL 50 MG TABLET PO SCH (20:54)
[2022-07-23] MEDS: 0.9 % SODIUM CHLORIDE 10 ML SYRINGE IV SCH ×3 (05:19→21:05)
[2022-07-23 07:33] LABS: Basophils # (Auto) 0.04 K/mcL (0.00-0.30); Basophils % (Auto) 0.7 % (0.0-2.0); Eosinophils # (Auto) 0.05 K/mcL (0.00-0.70); Eosinophils % (Auto) 0.9 % (0.0-7.0); Hematocrit 40.1 % (40.1-51.0); Hemoglobin 14.1 g/dL (13.7-17.5); Lymphocytes # (Auto) 1.18 K/mcL (1.50-4.80); Mean Cell Volume 94.1 fL (80.0-100.0); Mean Corpuscular HGB Conc 35.2 g/dL (31.0-36.0); Mean Platelet Volume 8.9 fL (8.8-12.5); Monocytes # (Auto) 0.53 K/mcL (0.10-0.90); Monocytes % (Auto) 9.4 % (1.0-12.0); Neutrophils % (Auto) 67.3 % (38.0-78.0); Platelet Count 217 K/mcL (140-440); RBC 4.26 M/mcL (4.63-6.08); Red Cell Distribution Width 13.8 % (11.5-14.5); WBC 5.6 K/mcL (4.5-11.0)
[2022-07-23] MEDS: POTASSIUM CHLORIDE 20 MEQ TABLET PO SCH ×2 (07:42→17:10)
[2022-07-23] MEDS: PANTOPRAZOLE 40 MG TABLET PO SCH (07:42)
[2022-07-23 08:15] LABS: ALT/SGPT 33 U/L (<40); AST/SGOT 24 U/L (<40); Albumin 2.8 gm/dL (3.2-5.2); Alkaline Phosphatase 76 U/L (39-117); Bilirubin,Total 0.3 mg/dL (0.1-1.0); Blood Urea Nitrogen 8 mg/dL (8-23); Calcium 8.2 mg/dL (8.6-10.4); Carbon Dioxide 23 mmol/L (22-30); Chloride 95 mmol/L (96-108); Globulin 2.9 gm/dL (2.2-3.7); Glomerular Filtration Rate 90; Glucose 93 mg/dL (70-105)
[2022-07-23] MEDS: APIXABAN 5 MG TABLET PO SCH ×2 (08:37→21:04)
[2022-07-23] MEDS: DOCUSATE SODIUM 100 MG CAPSULE PO SCH ×2 (08:37→21:05)
[2022-07-23] MEDS: HYDROCHLOROTHIAZIDE 12.5 MG CAPSULE PO SCH (08:38)
[2022-07-23] MEDS: MULTIVIT,THER IRON,CA,FA & MIN 1 TABLET PO SCH (08:38)
[2022-07-23] MEDS: ESCITALOPRAM 10 MG TABLET PO SCH (08:38)
[2022-07-23] MEDS: MIDODRINE 5 MG TABLET PO SCH ×2 (08:38→17:08)
[2022-07-23] MEDS: MEGESTROL ACETATE 400 MG/10 ML UDC PO SCH (08:38)
[2022-07-23] MEDS: VITAMIN D3 25 MCG TABLET PO SCH (08:39)
[2022-07-23] MEDS: TOFACITINIB 5 MG PO SCH (08:39)
[2022-07-23] MEDS: METOPROLOL SUCCINATE 25 MG TAB.XL.24H PO SCH (08:39)
[2022-07-23] MEDS ORDERED: METOPROLOL SUCCINATE 25 MG TAB.XL.24H PO ONE (09:08)
[2022-07-23] MEDS: DIGOXIN 125 MCG TABLET PO SCH ×2 (09:12→14:22)
--- NOTE | 2022-07-23 09:17 | Internal Med Progress Note ---
SUBJECTIVE Subjective Patient information: Note initiated : 07/23/22 at 9:14 am Service Date, if different from initiated Date: [] Patient: Alo Archibald a 86 y/o M admitted on 07/21/22 for weakness, N. Chief Complaint: [] Interval history: Mr. Archibald is a 86 year old M history of atrial fibrillation's, skin cancer, BPH, rheumatoid arthritis, presenting with general body weakness, rate loss, and loss of appetite over the past month and a half. Patient had an episode of fall about 1 and half month ago. He is coming of 30 pound weight loss over the same period of time. He is coming of progressive general body weakness and loss of appetite over the same. Time. He denies any respiratory symptoms including shortness of breath cough or respiratory wheezings. He is coming of headache right now but denies any other discomfort or pain at the moment. He recently moved from [place] to [place] after the of his last summer. Vital signs significant for tachycardia heart rate up to the 120s beats per minute in atrial fibrillation's. Labs significant for mild hyponatremia serum sodium 129. Chest x-ray unremarkable. Admission request is called for mild troponin natremia as well as general weakness. 07/21: Patient was tested positive for COVID-pneumonia but he is tolerating room air. Whole-body CT with contrast showing a 1 cm mass in the right upper quadrant of the lung. No any satellite masses seen. Patient is still committing of profound weakness. Morning labs pending. He denies any shortness of breath or cough or wheezing. He is coming of chills but denies any fever or diaphoresis. Physical therapist evaluated the patient and recommend SNF placement. Patient said that he need to talk to his family regarding discharged plan. We changed the patient from observation to MedSurg status to PCU while awaiting placement decisions. Continue IV fluid for hyponatremia while awaiting morning labs. Since the patient has been symptomatic for more than 10 days from COVID- pneumonia, will not initiate Paxlovid or Remdesivir. 07/22: Low-grade fever with Tmax 37.5 overnight. Patient is currently tolerating room air. Currently heart rate is up to 120s to 130s beats per minute at rest. Labs significant for serum sodium level 133 and potassium level 3.3. Patient has a poor appetite he said that the food does not taste good to him. He is complaining of general weakness. He is complaining of depression. He denies any shortness of breath cough or wheezing. He denies having any chills or diaphoresis. Saline lock the patient. Continue potassium oral replacement while checking chemistry including magnesium. Increased metoprolol succinate from 25 Mg p.o. daily to twice daily for better rate control while continuing Eliquis for anticoagulations. Add Lexapro as antidepressant. Pending outpatient PET/CT to evaluate her right upper lobe lung mass. Pending SNF placement. 07/23: Afebrile overnight. Patient is currently tolerating room air. Currently heart rate is up to 140s to 150s beats per minute at rest. Blood pressure also elevated to 150s/100s mmHg level. He still has a poor appetite and only took a few bites of his food. He is complaining of general weakness. He is complaining of depression. He denies any shortness of breath cough or wheezing. He denies having any chills or diaphoresis. Continue potassium oral replacement while checking chemistry including magnesium. Add sodium chloride 1gm PO TID for hyponatremia. Increase metoprolol succinate from 25 Mg p.o. to 50mg BID for better rate control while continuing Eliquis for anticoagulations. Continue Lexapro as antidepressant. Pending outpatient PET/CT to evaluate her right upper lobe lung mass. Pending SNF placement. Constitutional Vitals: Vital Signs Temp Pulse Resp BP Pulse Ox O2 Del Method O2 Flow Rate 36.2 C 110 H 22 156/106 94 Room Air 0 07/23/22 08:02 07/22/22 18:47 07/23/22 08:02 07/23/22 08:02 07/23/22 08:02 07/23/22 02:01 07/23/22 02:01 Period Temp Pulse Resp BP Sys/Suarez Pulse Ox O2 Del Method O2 Flow Rate Last 24 Hr 36.2 C-37.3 C 82-121 11-27 90-156/55-106 92-98 Room Air-Room Air 0-0 Intake and Output 07/22/22 07/23/22 07/23/22 19:59 03:59 11:59 Intake Total 890 350 Output Total 475 250 850 Balance 415 -250 -500 Weight 79.379 kg Intake & Output: Intake & Output 07/22/22 07/23/2207/23/23 19:59 03:59 11:59 Intake Total 890 350 Output Total 475 250 850 Balance 415 -250 -500 Weight 79.379 kg Intake: Nourishment/Supplement quantity 490 (ml) Oral 400 350 Output: Void Amount 475 250 850 Other: Meal Lunch Percent of Meal Consumed 100% Feeding Ability Assist with Tray Set Up Nourishment/Supplement name ensure Urine Appearance Clear Clear Urine Color Yellow Dark Yellow Urine Odor Normal Normal Head Head exam: Present atraumatic and normal inspection Eye Eye exam: Present normal appearance ENT ENT exam: Present mucous membranes moist, normal exam and normal external ear exam Neck Neck exam: Present normal inspection Respiratory Respiratory exam: Present normal respiratory exam Cardiovascular Cardiovascular exam: Present irregular rhythm and tachycardia GI/Abdominal GI/Abdominal exam: Present normal bowel sounds Back Exam Back exam: Present normal inspection Neurological Exam Neurological exam: Present alert and oriented X3 Psychiatric Psychiatric exam: Present depressed Skin Skin exam: Present intact and warm OBJ DATA Labs 07/23/22 05:37 07/23/22 05:37 Labs: Abnormal Lab Results 07/23/22 07/23/22 07/22/22 05:37 05:37 05:24 WBC RBC 4.26 L Hct Immature Gran % (Auto) 0.7 H Lymph % (Auto) [place] % (Auto) Lymph # (Auto) 1.18 L POC Sodium Sodium 128 L POC Chloride Chloride 95 L Carbon Dioxide BUN 7 L Creatinine 0.6 L 0.6 L POC Glucose Calcium 8.2 L 8.2 L POC WB Ioniz Calcium Total Protein 5.7 L Albumin 2.8 L 2.9 L Albumin/Globulin Ratio 0.9 L Urine Ketones Urine RBC Urine WBC Urine Mucus 07/22/22 07/21/22 07/21/22 05:24 06:04 06:04 WBC 4.4 L RBC 4.57 L 4.13 L Hct 39.0 L Immature Gran % (Auto) 0.6 H Lymph % (Auto) 14.3 L [place] % (Auto) 12.9 H Lymph # (Auto) 0.97 L 0.62 L POC Sodium Sodium POC Chloride Chloride Carbon Dioxide 20 L BUN Creatinine 0.6 L POC Glucose Calcium 8.4 L POC WB Ioniz Calcium Total Protein 5.8 L Albumin 2.8 L Albumin/Globulin Ratio 0.9 L Urine Ketones Urine RBC Urine WBC Urine Mucus 07/20/22 07/20/22 07/20/22 18:48 18:30 17:33 WBC RBC 4.33 L Hct Immature Gran % (Auto) 0.6 H Lymph % (Auto) 11.0 L [place] % (Auto) Lymph # (Auto) 0.60 L POC Sodium 129 L Sodium POC Chloride 92 L Chloride Carbon Dioxide BUN Creatinine POC Glucose 113 H Calcium POC WB Ioniz Calcium 1.14 L Total Protein Albumin Albumin/Globulin Ratio Urine Ketones 20 A Urine RBC 7 H Urine WBC 6 H Urine Mucus Few A Meds: Medications Acetaminophen (Acetaminophen 325 Mg Tablet) 650 mg PO HSP PRN PRN Reason: Insomnia Last Admin: 07/22/22 05:35 Dose: 650 mg Acetaminophen (Acetaminophen 325 Mg Tablet) 650 mg PO Q6HP PRN; Protocol PRN Reason: Per Pain Protocol/Fever > 101 Last Admin: 07/21/22 07:09 Dose: 650 mg Albuterol/Ipratropium (Ipratropium/Albuterol 3 Ml Ampul.Neb) 3 ml NEB Q4HRT PRN PRN Reason: Wheezing Apixaban (Apixaban 5 Mg Tablet) 5 mg PO BID [facility] Last Admin: 07/23/22 08:37 Dose: 5 mg Digoxin (Digoxin 125 Mcg Tablet) 125 mcg PO DAILY@1400 [facility] Diphenhydramine HCl (Diphenhydramine 25 Mg Capsule) 25 mg PO HSP PRN PRN Reason: Insomnia Last Admin: 07/21/22 20:41 Dose: 25 mg Docusate Sodium (Docusate Sodium 100 Mg Capsule) 100 mg PO BID [facility] Last Admin: 07/23/22 08:37 Dose: 100 mg Escitalopram Oxalate (Escitalopram 10 Mg Tablet) 10 mg PO DAILY [facility] Last Admin: 07/23/22 08:38 Dose: 10 mg Hydrochlorothiazide (Hydrochlorothiazide 12.5 Mg Capsule) 12.5 mg PO DAILY [facility] Last Admin: 07/23/22 08:38 Dose: 12.5 mg Ibuprofen (Ibuprofen 600 Mg Tablet) 600 mg PO QIDP PRN; Protocol PRN Reason: Headache Last Admin: 07/22/22 10:09 Dose: 600 mg Iron Carb/Multivit/[place]/Folic Acid (Multivit,Ther Iron,Ca,Fa & Min 1 Tablet) 1 tab PO QDAY [facility] Last Admin: 07/23/22 08:38 Dose: 1 tab Lactulose (Lactulose 20 Gm/30 Ml Oral.Aileen) 10 gm PO DAILYP PRN PRN Reason: Constipation Megestrol Acetate (Megestrol Acetate 400 Mg/10 Ml Udc) 400 mg PO DAILY [facility] Last Admin: 07/23/22 08:38 Dose: 400 mg Metoprolol Succinate (Metoprolol Succinate 25 Mg Tab.Xl.24h) 25 mg PO BID [facility] Last Admin: 07/23/22 08:39 Dose: 25 mg Metoprolol Tartrate (Metoprolol Tartrate 5 Mg/5 Ml Vial) 5 mg IV Q1HP PRN PRN Reason: Tachyarrhythmias Midodrine (Midodrine 5 Mg Tablet) 5 mg PO BID@0900,1800 [facility] Last Admin: 07/23/22 08:38 Dose: Not Given Ondansetron HCl (Ondansetron 4 Mg/2 Ml Vial) 4 mg IV Q4HP PRN; Protocol PRN Reason: Nausea And Vomiting Pantoprazole Sodium (Pantoprazole 40 Mg Tablet) 40 mg PO QAMAC [facility] Last Admin: 07/23/22 07:42 Dose: 40 mg Silodosin 4 Mg (Capsule) 1 dose PO QDAY [facility] Last Admin: 07/23/22 08:39 Dose: 1 dose Tofacitinib [Xeljanz (] 5 Mg Tablet) 1 dose PO QDAY [facility] Last Admin: 07/23/22 08:39 Dose: 1 dose Potassium Chloride (Potassium Chloride 20 Meq Tablet) 20 meq PO BIDCC [facility] Last Admin: 07/23/22 07:42 Dose: 20 meq Senna (Sennosides 1 Tablet) 2 tab PO HSP PRN PRN Reason: Constipation Sodium Chloride (0.9 % Sodium Chloride 10 Ml Syringe) 10 ml IV Q8 [facility] Last Admin: 07/23/22 05:19 Dose: 10 ml Trazodone HCl (Trazodone Hcl 50 Mg Tablet) 50 mg PO QHS [facility] Last Admin: 07/22/22 20:54 Dose: Not Given Vitamin D (Vitamin D3 25 Mcg Tablet) 25 mcg PO QDAY [facility] Last Admin: 07/23/22 08:39 Dose: 25 mcg A/P Assessment and plan (1) Hyponatremia: Status: Acute (2) Weakness: Status: Acute (3) Atrial fibrillation: Status: Acute (4) BPH (benign prostatic hyperplasia): Status: Acute (5) Rheumatoid arthritis: Status: Acute (6) Mass of upper lobe of right lung: Status: Acute (7) COVID: Status: Acute (8) Hypokalemia: Status: Acute (9) Depression: Status: Acute Narrative A/P Narrative: Assessment and Plans: 1. General weakness: Inpatient PCU Physical therapy evaluation and treatment-->recs. SNF placement Treat any underlying cause for weakness, see below Whole body CT w/ contrast to rule out malignancy such as non small cell cancer Consider Megace as appetite stimulant if active cancer is identified 2. Mild hyponatremia: Saline lock CMP in the morning to trend serum sodium level Whole body CT w/ contrast to rule out malignancy such as non small cell cancer, see #6 TSH with reflexive free T4, 0.98 Cortisol, random and AM, 20.5 and 17.9, respectively Add sodium chloride 1gm PO TID as oral replacement 3. Atrial fibrillation: Increase metoprolol succinate from 25 Mg p.o. to 50mg BID for better rate control Digoxin Eliquis 4. Rheumatoid arthritis: Tofacitinib 5. BPH: Silodosin 6. Right upper lobe lung mass measuring 1cm: Highly suspect malignancy Will follow up with PET/CT outpatient in [facility] 7. CoVID infection: Since the patient has been symptomatic for more than 10 days from COVID- pneumonia, will not initiate Paxlovid or Remdesivir Isolation: airborne and contact Supplemental oxygen therapy as needed 8. Hypokalemia: Potassium chloride oral replacement CMP daily to trend serum potassium level. Also check serum Mg level and replace as needed 9. Depression: DDx: Grief from losing last year Lexapro GI ppx: not currently indicated DVT ppx: Eliquis Code status: Full Prognosis: guarded Disposition: Inpatient PCU; PT-->SNF Time Spent With Patient Time: Total time spent is greater than 50% in coordination of care (as documented) at patient's floor/unit and/or counseling patient: Subsequent: Total time with patient: 35 - 49 minutes QUALITY VTE Deep Vein Thrombosis/Pulmonary Embolism Present on Admission: No
[2022-07-23] MEDS: SODIUM CHLORIDE 1 GM TABLET PO SCH ×2 (14:22→21:04)
[2022-07-23] MEDS: traZODone HCL 50 MG TABLET PO SCH (21:01)
[2022-07-23] MEDS: METOPROLOL SUCCINATE 50 MG TAB.XL.24H PO SCH (21:04)
[2022-07-24] MEDS: IBUPROFEN 600 MG TABLET PO PRN ×2 (00:07→20:39)
[2022-07-24] MEDS: traZODone HCL 50 MG TABLET PO SCH ×2 (00:08→21:00)
[2022-07-24] MEDS: 0.9 % SODIUM CHLORIDE 10 ML SYRINGE IV SCH ×3 (05:30→20:40)
[2022-07-24 07:30] LABS: ALT/SGPT 32 U/L (<40); AST/SGOT 21 U/L (<40); Alkaline Phosphatase 77 U/L (39-117); Bilirubin,Total 0.4 mg/dL (0.1-1.0); Blood Urea Nitrogen 9 mg/dL (8-23); Calcium 8.8 mg/dL (8.6-10.4); Carbon Dioxide 24 mmol/L (22-30); Chloride 99 mmol/L (96-108); Glomerular Filtration Rate 90; Glucose 82 mg/dL (70-105)
[2022-07-24 07:43] LABS: Basophils # (Auto) 0.04 K/mcL (0.00-0.30); Basophils % (Auto) 0.9 % (0.0-2.0); Eosinophils # (Auto) 0.02 K/mcL (0.00-0.70); Eosinophils % (Auto) 0.4 % (0.0-7.0); Hematocrit 44.1 % (40.1-51.0); Hemoglobin 15.3 g/dL (13.7-17.5); Lymphocytes # (Auto) 1.23 K/mcL (1.50-4.80); Lymphocytes % (Auto) 26.2 % (15.5-49.0); Mean Cell Volume 96.7 fL (80.0-100.0); Mean Corpuscular HGB Conc 34.7 g/dL (31.0-36.0); Mean Platelet Volume 8.7 fL (8.8-12.5); Monocytes # (Auto) 0.56 K/mcL (0.10-0.90); Monocytes % (Auto) 11.9 % (1.0-12.0); Neutrophils % (Auto) 60.2 % (38.0-78.0); Platelet Count 223 K/mcL (140-440); RBC 4.56 M/mcL (4.63-6.08); Red Cell Distribution Width 14.1 % (11.5-14.5)
[2022-07-24 08:08] LABS: WBC 4.7 K/mcL (4.5-11.0)
[2022-07-24] MEDS: PANTOPRAZOLE 40 MG TABLET PO SCH (08:32)
[2022-07-24] MEDS: HYDROCHLOROTHIAZIDE 12.5 MG CAPSULE PO SCH (08:32)
[2022-07-24] MEDS: VITAMIN D3 25 MCG TABLET PO SCH (08:33)
[2022-07-24] MEDS: METOPROLOL SUCCINATE 50 MG TAB.XL.24H PO SCH ×2 (08:33→20:38)
[2022-07-24] MEDS: ESCITALOPRAM 10 MG TABLET PO SCH (08:33)
[2022-07-24] MEDS: MULTIVIT,THER IRON,CA,FA & MIN 1 TABLET PO SCH (08:33)
[2022-07-24] MEDS: POTASSIUM CHLORIDE 20 MEQ TABLET PO SCH ×2 (08:33→17:47)
[2022-07-24] MEDS: DOCUSATE SODIUM 100 MG CAPSULE PO SCH ×2 (08:33→20:37)
[2022-07-24] MEDS: MEGESTROL ACETATE 400 MG/10 ML UDC PO SCH (08:33)
[2022-07-24] MEDS: APIXABAN 5 MG TABLET PO SCH ×2 (08:33→20:38)
[2022-07-24] MEDS: TOFACITINIB 5 MG PO SCH (08:34)
[2022-07-24] MEDS: SODIUM CHLORIDE 1 GM TABLET PO SCH ×3 (08:51→20:38)
[2022-07-24] MEDS: MIDODRINE 5 MG TABLET PO SCH ×2 (09:47→17:47)
--- NOTE | 2022-07-24 10:13 | Internal Med Progress Note ---
SUBJECTIVE Subjective Patient information: Note initiated : 07/24/22 at 10:07 am Service Date, if different from initiated Date: [] Patient: Alo Archibald a 86 y/o M admitted on 07/21/22 for weakness, N. Chief Complaint: [] Interval history: Mr. Archibald is a 86 year old M history of atrial fibrillation's, skin cancer, BPH, rheumatoid arthritis, presenting with general body weakness, rate loss, and loss of appetite over the past month and a half. Patient had an episode of fall about 1 and half month ago. He is coming of 30 pound weight loss over the same period of time. He is coming of progressive general body weakness and loss of appetite over the same. Time. He denies any respiratory symptoms including shortness of breath cough or respiratory wheezings. He is coming of headache right now but denies any other discomfort or pain at the moment. He recently moved from [place] to [place] after the of his last summer. Vital signs significant for tachycardia heart rate up to the 120s beats per minute in atrial fibrillation's. Labs significant for mild hyponatremia serum sodium 129. Chest x-ray unremarkable. Admission request is called for mild troponin natremia as well as general weakness. 07/21: Patient was tested positive for COVID-pneumonia but he is tolerating room air. Whole-body CT with contrast showing a 1 cm mass in the right upper quadrant of the lung. No any satellite masses seen. Patient is still committing of profound weakness. Morning labs pending. He denies any shortness of breath or cough or wheezing. He is coming of chills but denies any fever or diaphoresis. Physical therapist evaluated the patient and recommend SNF placement. Patient said that he need to talk to his family regarding discharged plan. We changed the patient from observation to MedSurg status to PCU while awaiting placement decisions. Continue IV fluid for hyponatremia while awaiting morning labs. Since the patient has been symptomatic for more than 10 days from COVID- pneumonia, will not initiate Paxlovid or Remdesivir. 07/22: Low-grade fever with Tmax 37.5 overnight. Patient is currently tolerating room air. Currently heart rate is up to 120s to 130s beats per minute at rest. Labs significant for serum sodium level 133 and potassium level 3.3. Patient has a poor appetite he said that the food does not taste good to him. He is complaining of general weakness. He is complaining of depression. He denies any shortness of breath cough or wheezing. He denies having any chills or diaphoresis. Saline lock the patient. Continue potassium oral replacement while checking chemistry including magnesium. Increased metoprolol succinate from 25 Mg p.o. daily to twice daily for better rate control while continuing Eliquis for anticoagulations. Add Lexapro as antidepressant. Pending outpatient PET/CT to evaluate her right upper lobe lung mass. Pending SNF placement. 07/23: Afebrile overnight. Patient is currently tolerating room air. Currently heart rate is up to 140s to 150s beats per minute at rest. Blood pressure also elevated to 150s/100s mmHg level. He still has a poor appetite and only took a few bites of his food. He is complaining of general weakness. He is complaining of depression. He denies any shortness of breath cough or wheezing. He denies having any chills or diaphoresis. Continue potassium oral replacement while checking chemistry including magnesium. Add sodium chloride 1gm PO TID for hyponatremia. Increase metoprolol succinate from 25 Mg p.o. to 50mg BID for better rate control while continuing Eliquis for anticoagulations. Continue Lexapro as antidepressant. Pending outpatient PET/CT to evaluate her right upper lobe lung mass. Pending SNF placement. 07/24: Patient is on room air. Blood pressure in heart rate well controlled this morning. He is complaining of abdominal fullness and distention's and stated that he could not keep the food down beyond upper abdominal quadrant regions. He states that he has not had a bowel movement for the past 3 days. He is also complaining of mild to moderate pain of his right lateral hip/buttock. Downgrade patient to [facility] telemetry. CT of the right hip with contrast. Stool softener/laxative with senna, Colace, milk of magnesia, MiraLAX, lactulose as needed to promote a bowel movement. Continue airborne and contact isolation for COVID infections. Pending outpatient PET/CT to evaluate her right upper lobe lung mass. Pending SNF placement. Constitutional Vitals: Vital Signs Temp Pulse Resp BP Pulse Ox O2 Del Method O2 Flow Rate 36.8 C 110 H 11 L 123/86 100 Room Air 0 07/24/22 08:08 07/22/22 18:47 07/24/22 08:08 07/24/22 08:08 07/24/22 08:08 07/24/22 02:01 07/23/22 19:01 Period Temp Pulse Resp BP Sys/Suarez Pulse Ox O2 Del Method O2 Flow Rate Last 24 Hr 36.5 C-37.7 C 11-24 72-140/56-99 97-100 Room Air-Room Air 0 Intake and Output 07/23/22 07/24/22 07/24/22 19:59 03:59 11:59 Intake Total 600 500 180 Output Total 475 1000 650 Balance 125 -500 -470 Weight 78.471 kg Intake & Output: Intake & Output 07/23/22 07/24/22 07/24/22 19:59 03:59 11:59 Intake Total 600 500 180 Output Total 475 1000 650 Balance 125 -500 -470 Weight 78.471 kg Intake: Nourishment/Supplement quantity 480 (ml) Oral 120 500 180 Output: Void Amount 475 1000 650 Other: Meal Lunch Dinner Breakfast Percent of Meal Consumed 50% 25% 50% Feeding Ability Assist with Tray Set Up Assist with Tray Set Up Independent Nourishment/Supplement name ensure Urine Appearance Clear Clear Clear Urine Color Light Joan Yellow Yellow Urine Odor Strong Normal Normal Head Head exam: Present atraumatic and normal inspection Eye Eye exam: Present normal appearance ENT ENT exam: Present mucous membranes moist, normal exam and normal external ear exam Neck Neck exam: Present normal inspection Respiratory Respiratory exam: Present normal respiratory exam Cardiovascular Cardiovascular exam: Present irregular rhythm GI/Abdominal GI/Abdominal exam: Present normal bowel sounds Extremities Exam Extremities exam: Present full ROM, normal inspection and tenderness Back Exam Back exam: Present normal inspection Neurological Exam Neurological exam: Present alert and oriented X3 Skin Skin exam: Present intact and warm OBJ DATA Labs 07/24/22 06:09 07/24/22 06:09 Labs: Abnormal Lab Results 07/24/22 07/24/22 07/23/22 06:09 06:09 05:37 WBC RBC 4.56 L Hct MPV 8.7 L Immature Gran % (Auto) Lymph % (Auto) [place] % (Auto) Lymph # (Auto) 1.23 L Sodium 128 L Chloride 95 L Carbon Dioxide BUN Creatinine 0.6 L 0.6 L Calcium 8.2 L Total Protein 5.7 L Albumin 3.0 L 2.8 L Albumin/Globulin Ratio 07/23/22 07/22/22 07/22/22 05:37 05:24 05:24 WBC RBC 4.26 L 4.57 L Hct MPV Immature Gran % (Auto) 0.7 H 0.6 H Lymph % (Auto) [place] % (Auto) 12.9 H Lymph # (Auto) 1.18 L 0.97 L Sodium Chloride Carbon Dioxide BUN 7 L Creatinine 0.6 L Calcium 8.2 L Total Protein Albumin 2.9 L Albumin/Globulin Ratio 0.9 L 07/21/22 07/21/22 06:04 06:04 WBC 4.4 L RBC 4.13 L Hct 39.0 L MPV Immature Gran % (Auto) Lymph % (Auto) 14.3 L [place] % (Auto) Lymph # (Auto) 0.62 L Sodium Chloride Carbon Dioxide 20 L BUN Creatinine 0.6 L Calcium 8.4 L Total Protein 5.8 L Albumin 2.8 L Albumin/Globulin Ratio 0.9 L Meds: Medications Acetaminophen (Acetaminophen 325 Mg Tablet) 650 mg PO HSP PRN PRN Reason: Insomnia Last Admin: 07/22/22 05:35 Dose: 650 mg Acetaminophen (Acetaminophen 325 Mg Tablet) 650 mg PO Q6HP PRN; Protocol PRN Reason: Per Pain Protocol/Fever > 101 Last Admin: 07/21/22 07:09 Dose: 650 mg Albuterol/Ipratropium (Ipratropium/Albuterol 3 Ml Ampul.Neb) 3 ml NEB Q4HRT PRN PRN Reason: Wheezing Apixaban (Apixaban 5 Mg Tablet) 5 mg PO BID [facility] Last Admin: 07/24/22 08:33 Dose: 5 mg Digoxin (Digoxin 125 Mcg Tablet) 125 mcg PO DAILY@1400 [facility] Last Admin: 07/23/22 14:22 Dose: 125 mcg Diphenhydramine HCl (Diphenhydramine 25 Mg Capsule) 25 mg PO HSP PRN PRN Reason: Insomnia Last Admin: 07/21/22 20:41 Dose: 25 mg Docusate Sodium (Docusate Sodium 100 Mg Capsule) 100 mg PO BID [facility] Last Admin: 07/24/22 08:33 Dose: 100 mg Escitalopram Oxalate (Escitalopram 10 Mg Tablet) 10 mg PO DAILY [facility] Last Admin: 07/24/22 08:33 Dose: 10 mg Hydrochlorothiazide (Hydrochlorothiazide 12.5 Mg Capsule) 12.5 mg PO DAILY [facility] Last Admin: 07/24/22 08:32 Dose: 12.5 mg Ibuprofen (Ibuprofen 600 Mg Tablet) 600 mg PO QIDP PRN; Protocol PRN Reason: Headache Last Admin: 07/24/22 00:07 Dose: 600 mg Iron Carb/Multivit/[place]/Folic Acid (Multivit,Ther Iron,Ca,Fa & Min 1 Tablet) 1 tab PO QDAY [facility] Last Admin: 07/24/22 08:33 Dose: 1 tab Lactulose (Lactulose 20 Gm/30 Ml Oral.Aileen) 10 gm PO DAILYP PRN PRN Reason: Constipation Megestrol Acetate (Megestrol Acetate 400 Mg/10 Ml Udc) 400 mg PO DAILY [facility] Last Admin: 07/24/22 08:33 Dose: 400 mg Metoprolol Succinate (Metoprolol Succinate 50 Mg Tab.Xl.24h) 50 mg PO BID [facility] Last Admin: 07/24/22 08:33 Dose: 50 mg Metoprolol Tartrate (Metoprolol Tartrate 5 Mg/5 Ml Vial) 5 mg IV Q1HP PRN PRN Reason: Tachyarrhythmias Midodrine (Midodrine 5 Mg Tablet) 5 mg PO BID@0900,1800 [facility] Last Admin: 07/24/22 09:47 Dose: 5 mg Ondansetron HCl (Ondansetron 4 Mg/2 Ml Vial) 4 mg IV Q4HP PRN; Protocol PRN Reason: Nausea And Vomiting Pantoprazole Sodium (Pantoprazole 40 Mg Tablet) 40 mg PO QAMAC [facility] Last Admin: 07/24/22 08:32 Dose: 40 mg Silodosin 4 Mg (Capsule) 1 dose PO QDAY [facility] Last Admin: 07/24/22 08:34 Dose: 1 dose Tofacitinib [Xeljanz (] 5 Mg Tablet) 1 dose PO QDAY [facility] Last Admin: 07/24/22 08:34 Dose: 1 dose Potassium Chloride (Potassium Chloride 20 Meq Tablet) 20 meq PO BIDCC [facility] Last Admin: 07/24/22 08:33 Dose: 20 meq Senna (Sennosides 1 Tablet) 2 tab PO HSP PRN PRN Reason: Constipation Sodium Chloride (0.9 % Sodium Chloride 10 Ml Syringe) 10 ml IV Q8 [facility] Last Admin: 07/24/22 05:30 Dose: 10 ml Sodium Chloride (Sodium Chloride 1 Gm Tablet) 1 gm PO TID [facility] Last Admin: 07/24/22 08:51 Dose: 1 gm Trazodone HCl (Trazodone Hcl 50 Mg Tablet) 50 mg PO QHS [facility] Last Admin: 07/24/22 00:08 Dose: 50 mg Vitamin D (Vitamin D3 25 Mcg Tablet) 25 mcg PO QDAY [facility] Last Admin: 07/24/22 08:33 Dose: 25 mcg A/P Assessment and plan (1) Hyponatremia: Status: Acute (2) Weakness: Status: Acute (3) Atrial fibrillation: Status: Acute (4) BPH (benign prostatic hyperplasia): Status: Acute (5) Rheumatoid arthritis: Status: Acute (6) Mass of upper lobe of right lung: Status: Acute (7) COVID: Status: Acute (8) Hypokalemia: Status: Acute (9) Depression: Status: Acute (10) Constipation: Status: Acute Narrative A/P Narrative: Assessment and Plans: 1. General weakness: Inpatient med surg telemetry Physical therapy evaluation and treatment-->recs. SNF placement Treat any underlying cause for weakness, see below Whole body CT w/ contrast to rule out malignancy such as non small cell cancer Consider Megace as appetite stimulant if active cancer is identified 2. Mild hyponatremia: Saline lock CMP in the morning to trend serum sodium level Whole body CT w/ contrast to rule out malignancy such as non small cell cancer, see #6 TSH with reflexive free T4, 0.98 Cortisol, random and AM, 20.5 and 17.9, respectively Add sodium chloride 1gm PO TID as oral replacement 3. Atrial fibrillation: Metoprolol succinate 50mg BID Digoxin Eliquis 4. Rheumatoid arthritis: Tofacitinib 5. BPH: Silodosin 6. Right upper lobe lung mass measuring 1cm: Highly suspect malignancy Will follow up with PET/CT outpatient in [facility] 7. CoVID infection: Since the patient has been symptomatic for more than 10 days from COVID- pneumonia, will not initiate Paxlovid or Remdesivir Isolation: airborne and contact Supplemental oxygen therapy as needed 8. Hypokalemia: Potassium chloride oral replacement CMP daily to trend serum potassium level. Also check serum Mg level and replace as needed 9. Depression: DDx: Grief from losing last year Lexapro 10. Constipation: Colace Senna Miralax Milk of Magnesia Lactulose GI ppx: not currently indicated DVT ppx: Eliquis Code status: Full Prognosis: Stable Disposition: Inpatient med surg tele; SNF Time Spent With Patient Time: Total time spent is greater than 50% in coordination of care (as documented) at patient's floor/unit and/or counseling patient: Subsequent: Total time with patient: 35 - 49 minutes QUALITY VTE Deep Vein Thrombosis/Pulmonary Embolism Present on Admission: No
[2022-07-24] MEDS: SENNOSIDES 1 TABLET PO PRN (11:03)
[2022-07-24] MEDS ORDERED: IOPAMIDOL 100 ML BOTTLE IV ONE (11:17)
--- NOTE | 2022-07-24 11:51 | Cat Scan Report ---
History: Right buttock and hip pain, weakness TECHNIQUE: Following injection of intravenous nonionic contrast the patient was imaged during the arterial phase from above the iliac crests through the scrotum. Sagittal and coronal reformats were created. The radiation exposure was limited using dose reduction technology. FINDINGS: There are numerous diverticula in the descending and sigmoid colon. There is no evidence of acute diverticulitis. There is a single loop of borderline dilated ileum in the right mid pelvis measuring 2.9 cm in transverse dimension. The wall is not thickened or inflamed. The remainder of the visualized small intestine is normal. There is no evidence of appendicitis. No intrapelvic mass or ascites are present. There is no adenopathy. The prostate is small and there appears to be a transurethral resection defect in the center of the prostate. Bone windows show no pelvic or hip fracture. There is mild joint space narrowing due to mild arthritis and loss of articular cartilage. There are tiny spurs along the margins of both femoral heads. 6 mm grade 1 spondylolisthesis is present at L5-S1 due to bilateral spondylolysis defects. The disc space is severely narrowed and there is reactive sclerosis on both sides of the disc. There is severe stenosis of the right and moderate stenosis of the left side foramina. Central canal is normal in caliber. L4-5 disc is normal in height. There is severe disc space narrowing at L3-4 with 4 mm grade 1 spondylolisthesis. Mild arthritis is also present in the sacroiliac joints and symphysis pubis. A small fat-containing umbilical hernia is seen. There is no surrounding inflammation. The musculature around the pelvis including the buttocks is normal and symmetric without evidence of hematoma inflammation or mass. IMPRESSION: No acute abnormality in the pelvis nor around the hips. Diverticulosis without diverticulitis Grade 1 spondylolisthesis at L5-S1 with severe stenosis of the right-sided neural foramen Interpreted and Authenticated by: Ezequiel Seaman 07/24/22
[2022-07-24] MEDS: DIGOXIN 125 MCG TABLET PO SCH (14:06)
[2022-07-24] MEDS ORDERED: HYDROCORTISONE 0.5% TOPICAL PRN (16:37)
[2022-07-24] MEDS: POLYETHYLENE GLYCOL 3350 17 GM PACKET PO PRN (17:54)
[2022-07-24] MEDS: diphenhydrAMINE 25 MG CAPSULE PO PRN (20:38)
[2022-07-25] MEDS: 0.9 % SODIUM CHLORIDE 10 ML SYRINGE IV SCH ×3 (06:15→21:35)
[2022-07-25 07:15] LABS: Basophils # (Auto) 0.05 K/mcL (0.00-0.30); Basophils % (Auto) 0.9 % (0.0-2.0); Eosinophils # (Auto) 0.02 K/mcL (0.00-0.70); Eosinophils % (Auto) 0.3 % (0.0-7.0); Hematocrit 45.4 % (40.1-51.0); Hemoglobin 15.6 g/dL (13.7-17.5); Lymphocytes # (Auto) 1.43 K/mcL (1.50-4.80); Lymphocytes % (Auto) 24.9 % (15.5-49.0); Mean Corpuscular HGB Conc 34.4 g/dL (31.0-36.0); Mean Platelet Volume 8.5 fL (8.8-12.5); Monocytes # (Auto) 0.68 K/mcL (0.10-0.90); Monocytes % (Auto) 11.8 % (1.0-12.0); Neutrophils % (Auto) 61.4 % (38.0-78.0); Platelet Count 252 K/mcL (140-440); RBC 4.73 M/mcL (4.63-6.08); Red Cell Distribution Width 13.8 % (11.5-14.5); WBC 5.8 K/mcL (4.5-11.0)
[2022-07-25] MEDS: PANTOPRAZOLE 40 MG TABLET PO SCH (07:57)
[2022-07-25 08:03] LABS: ALT/SGPT 47 U/L (<40); AST/SGOT 35 U/L (<40); Albumin 3.1 gm/dL (3.2-5.2); Alkaline Phosphatase 78 U/L (39-117); Bilirubin,Total 0.4 mg/dL (0.1-1.0); Blood Urea Nitrogen 11 mg/dL (8-23); Calcium 8.9 mg/dL (8.6-10.4); Carbon Dioxide 25 mmol/L (22-30); Chloride 96 mmol/L (96-108); Globulin 3.2 gm/dL (2.2-3.7); Glomerular Filtration Rate 85; Glucose 81 mg/dL (70-105)
[2022-07-25] MEDS ORDERED: MINERAL OIL 1 DOSE ENEMA PR PRN (09:00)
[2022-07-25] MEDS ORDERED: BISACODYL 10 MG SUPP.RECT PR PRN (09:00)
--- NOTE | 2022-07-25 09:03 | Internal Med Progress Note ---
SUBJECTIVE Subjective Patient information: Note initiated : 07/25/22 at 9:01 am Service Date, if different from initiated Date: [] Patient: Alo Archibald a 86 y/o M admitted on 07/21/22 for weakness, N. Chief Complaint: [] Interval history: Mr. Archibald is a 86 year old M history of atrial fibrillation's, skin cancer, BPH, rheumatoid arthritis, presenting with general body weakness, rate loss, and loss of appetite over the past month and a half. Patient had an episode of fall about 1 and half month ago. He is coming of 30 pound weight loss over the same period of time. He is coming of progressive general body weakness and loss of appetite over the same. Time. He denies any respiratory symptoms including shortness of breath cough or respiratory wheezings. He is coming of headache right now but denies any other discomfort or pain at the moment. He recently moved from [place] to [place] after the of his last summer. Vital signs significant for tachycardia heart rate up to the 120s beats per minute in atrial fibrillation's. Labs significant for mild hyponatremia serum sodium 129. Chest x-ray unremarkable. Admission request is called for mild troponin natremia as well as general weakness. 07/21: Patient was tested positive for COVID-pneumonia but he is tolerating room air. Whole-body CT with contrast showing a 1 cm mass in the right upper quadrant of the lung. No any satellite masses seen. Patient is still committing of profound weakness. Morning labs pending. He denies any shortness of breath or cough or wheezing. He is coming of chills but denies any fever or diaphoresis. Physical therapist evaluated the patient and recommend SNF placement. Patient said that he need to talk to his family regarding discharged plan. We changed the patient from observation to MedSurg status to PCU while awaiting placement decisions. Continue IV fluid for hyponatremia while awaiting morning labs. Since the patient has been symptomatic for more than 10 days from COVID- pneumonia, will not initiate Paxlovid or Remdesivir. 07/22: Low-grade fever with Tmax 37.5 overnight. Patient is currently tolerating room air. Currently heart rate is up to 120s to 130s beats per minute at rest. Labs significant for serum sodium level 133 and potassium level 3.3. Patient has a poor appetite he said that the food does not taste good to him. He is complaining of general weakness. He is complaining of depression. He denies any shortness of breath cough or wheezing. He denies having any chills or diaphoresis. Saline lock the patient. Continue potassium oral replacement while checking chemistry including magnesium. Increased metoprolol succinate from 25 Mg p.o. daily to twice daily for better rate control while continuing Eliquis for anticoagulations. Add Lexapro as antidepressant. Pending outpatient PET/CT to evaluate her right upper lobe lung mass. Pending SNF placement. 07/23: Afebrile overnight. Patient is currently tolerating room air. Currently heart rate is up to 140s to 150s beats per minute at rest. Blood pressure also elevated to 150s/100s mmHg level. He still has a poor appetite and only took a few bites of his food. He is complaining of general weakness. He is complaining of depression. He denies any shortness of breath cough or wheezing. He denies having any chills or diaphoresis. Continue potassium oral replacement while checking chemistry including magnesium. Add sodium chloride 1gm PO TID for hyponatremia. Increase metoprolol succinate from 25 Mg p.o. to 50mg BID for better rate control while continuing Eliquis for anticoagulations. Continue Lexapro as antidepressant. Pending outpatient PET/CT to evaluate her right upper lobe lung mass. Pending SNF placement. 07/24: Patient is on room air. Blood pressure in heart rate well controlled this morning. He is complaining of abdominal fullness and distention's and stated that he could not keep the food down beyond upper abdominal quadrant regions. He states that he has not had a bowel movement for the past 3 days. He is also complaining of mild to moderate pain of his right lateral hip/buttock. Downgrade patient to [facility] telemetry. CT of the right hip with contrast. Stool softener/laxative with senna, Colace, milk of magnesia, MiraLAX, lactulose as needed to promote a bowel movement. Continue airborne and contact isolation for COVID infections. Pending outpatient PET/CT to evaluate her right upper lobe lung mass. Pending SNF placement. 07/25: Patient does not feel good this morning he is complaining of worsening abdominal pain and constipation and fullness. He has a poor appetite from that. He denies any more right hip pain. He denies having any shortness of breath fever or chills at the moment. Stool softener/laxative with senna, Colace, milk of magnesia, MiraLAX, lactulose as needed to promote a bowel movement. Dulcolax suppository and/or Fleet enema PRN constipation if all of the above fail. Continue airborne and contact isolation for COVID infections. Pending outpatient PET/CT to evaluate her right upper lobe lung mass. Pending SNF placement. Constitutional Vitals: Vital Signs Temp Pulse Resp BP Pulse Ox O2 Del Method O2 Flow Rate 36.9 C 110 H 25 H 133/103 100 Room Air 0 07/25/22 08:11 07/22/22 18:47 07/25/22 08:11 07/25/22 08:11 07/25/22 08:11 07/25/22 04:01 07/24/22 18:01 Period Temp Pulse Resp BP Sys/Suarez Pulse Ox O2 Del Method O2 Flow Rate Last 24 Hr 36.6 C-37.2 C 10- 97-136/64-103 95-100 Room Air-Room Air 0 Intake and Output 07/24/22 07/25/22 07/25/22 19:59 03:59 11:59 Intake Total 480 150 300 Output Total 875 225 375 Balance -395 -75 -75 Weight 78.471 kg 78.154 kg Intake & Output: Intake & Output 07/24/22 07/25/22 07/25/22 19:59 03:59 11:59 Intake Total 480 150 300 Output Total 875 225 375 Balance -395 -75 -75 Weight 78.471 kg 78.154 kg Intake: Oral 480 150 300 Output: Void Amount 875 225 375 Other: Urine Appearance Clear Clear Clear Urine Color Yellow Dark Yellow Light Joan Urine Odor Normal Normal Normal # Bowel Movements 0 Head Head exam: Present atraumatic and normal inspection Eye Eye exam: Present normal appearance ENT ENT exam: Present mucous membranes moist, normal exam and normal external ear exam Neck Neck exam: Present normal inspection Respiratory Respiratory exam: Present normal respiratory exam Cardiovascular Cardiovascular exam: Present normal rate and rhythm GI/Abdominal GI/Abdominal exam: Present normal bowel sounds and tenderness Back Exam Back exam: Present normal inspection Neurological Exam Neurological exam: Present alert and oriented X3 Skin Skin exam: Present intact and warm OBJ DATA Labs 07/25/22 06:10 07/25/22 06:10 Labs: Abnormal Lab Results 07/25/22 07/25/22 07/24/22 06:10 06:10 06:09 RBC MPV 8.5 L Immature Gran % (Auto) 0.7 H Lymph # (Auto) 1.43 L Sodium 131 L Chloride Creatinine 0.6 L Calcium ALT 47 H Total Protein Albumin 3.1 L 3.0 L 07/24/22 07/23/22 07/23/22 06:09 05:37 05:37 RBC 4.56 L 4.26 L MPV 8.7 L Immature Gran % (Auto) 0.7 H Lymph # (Auto) 1.23 L 1.18 L Sodium 128 L Chloride 95 L Creatinine 0.6 L Calcium 8.2 L ALT Total Protein 5.7 L Albumin 2.8 L Meds: Medications Acetaminophen (Acetaminophen 325 Mg Tablet) 650 mg PO Q6HP PRN; Protocol PRN Reason: Per Pain Protocol/Fever > 101 Last Admin: 07/21/22 07:09 Dose: 650 mg Albuterol/Ipratropium (Ipratropium/Albuterol 3 Ml Ampul.Neb) 3 ml NEB Q4HRT PRN PRN Reason: Wheezing Apixaban (Apixaban 5 Mg Tablet) 5 mg PO BID [facility] Last Admin: 07/24/22 20:38 Dose: 5 mg Digoxin (Digoxin 125 Mcg Tablet) 125 mcg PO DAILY@1400 [facility] Last Admin: 07/24/22 14:06 Dose: 125 mcg Diphenhydramine HCl (Diphenhydramine 25 Mg Capsule) 25 mg PO HSP PRN PRN Reason: Insomnia Last Admin: 07/24/22 20:38 Dose: 25 mg Docusate Sodium (Docusate Sodium 100 Mg Capsule) 100 mg PO BID [facility] Last Admin: 07/24/22 20:37 Dose: 100 mg Escitalopram Oxalate (Escitalopram 10 Mg Tablet) 10 mg PO DAILY [facility] Last Admin: 07/24/22 08:33 Dose: 10 mg Hydrochlorothiazide (Hydrochlorothiazide 12.5 Mg Capsule) 12.5 mg PO DAILY [facility] Last Admin: 07/24/22 08:32 Dose: 12.5 mg Hydrocortisone (Hydrocortisone Crm 0.5% 30 Gm Tube) 1 gm TOPICAL BIDP PRN PRN Reason: Itching Ibuprofen (Ibuprofen 600 Mg Tablet) 600 mg PO QIDP PRN; Protocol PRN Reason: Headache Last Admin: 07/24/22 20:39 Dose: 600 mg Iron Carb/Multivit/[employer]/Folic Acid (Multivit,Ther Iron,Ca,Fa & Min 1 Tablet) 1 tab PO QDAY [facility] Last Admin: 07/24/22 08:33 Dose: 1 tab Lactulose (Lactulose 20 Gm/30 Ml Oral.Aileen) 10 gm PO DAILYP PRN PRN Reason: Constipation Magnesium Hydroxide (Magnesium Hydroxide 30 Ml Oral.Susp) 30 ml PO BIDP PRN PRN Reason: Constipation Megestrol Acetate (Megestrol Acetate 400 Mg/10 Ml Udc) 400 mg PO DAILY [facility] Last Admin: 07/24/22 08:33 Dose: 400 mg Metoprolol Succinate (Metoprolol Succinate 50 Mg Tab.Xl.24h) 50 mg PO BID [facility] Last Admin: 07/24/22 20:38 Dose: 50 mg Metoprolol Tartrate (Metoprolol Tartrate 5 Mg/5 Ml Vial) 5 mg IV Q1HP PRN PRN Reason: Tachyarrhythmias Midodrine (Midodrine 5 Mg Tablet) 5 mg PO BID@0900,1800 [facility] Last Admin: 07/24/22 17:47 Dose: 5 mg Ondansetron HCl (Ondansetron 4 Mg/2 Ml Vial) 4 mg IV Q4HP PRN; Protocol PRN Reason: Nausea And Vomiting Pantoprazole Sodium (Pantoprazole 40 Mg Tablet) 40 mg PO QAMAC [facility] Last Admin: 07/25/22 07:57 Dose: 40 mg Silodosin 4 Mg (Capsule) 1 dose PO QDAY [facility] Last Admin: 07/24/22 08:34 Dose: 1 dose Tofacitinib [Xeljanz (] 5 Mg Tablet) 1 dose PO QDAY [facility] Last Admin: 07/24/22 08:34 Dose: 1 dose Polyethylene Glycol (Polyethylene Glycol 3350 17 Gm Packet) 17 gm PO DAILYP PRN PRN Reason: Constipation Last Admin: 07/24/22 17:54 Dose: 17 gm Potassium Chloride (Potassium Chloride 20 Meq Tablet) 20 meq PO BIDCC [facility] Last Admin: 07/24/22 17:47 Dose: 20 meq Senna (Sennosides 1 Tablet) 2 tab PO HSP PRN PRN Reason: Constipation Last Admin: 07/24/22 11:03 Dose: 2 tab Sodium Chloride (0.9 % Sodium Chloride 10 Ml Syringe) 10 ml IV Q8 [facility] Last Admin: 07/25/22 06:15 Dose: 10 ml Sodium Chloride (Sodium Chloride 1 Gm Tablet) 1 gm PO TID [facility] Last Admin: 07/24/22 20:38 Dose: 1 gm Trazodone HCl (Trazodone Hcl 50 Mg Tablet) 50 mg PO QHS [facility] Last Admin: 07/24/22 21:00 Dose: Not Given Vitamin D (Vitamin D3 25 Mcg Tablet) 25 mcg PO QDAY [facility] Last Admin: 07/24/22 08:33 Dose: 25 mcg A/P Assessment and plan (1) Hyponatremia: Status: Acute (2) Weakness: Status: Acute (3) Atrial fibrillation: Status: Acute (4) BPH (benign prostatic hyperplasia): Status: Acute (5) Rheumatoid arthritis: Status: Acute (6) Mass of upper lobe of right lung: Status: Acute (7) COVID: Status: Acute (8) Hypokalemia: Status: Acute (9) Depression: Status: Acute (10) Constipation: Status: Acute Narrative A/P Narrative: Assessment and Plans: 1. General weakness: Inpatient med surg telemetry Physical therapy evaluation and treatment-->recs. SNF placement Treat any underlying cause for weakness, see below Whole body CT w/ contrast to rule out malignancy such as non small cell cancer Consider Megace as appetite stimulant if active cancer is identified 2. Mild hyponatremia: Saline lock CMP in the morning to trend serum sodium level Whole body CT w/ contrast to rule out malignancy such as non small cell cancer, see #6 TSH with reflexive free T4, 0.98 Cortisol, random and AM, 20.5 and 17.9, respectively Sodium chloride 1gm PO TID as oral replacement 3. Atrial fibrillation: Metoprolol succinate 50mg BID Digoxin Eliquis 4. Rheumatoid arthritis: Tofacitinib 5. BPH: Silodosin 6. Right upper lobe lung mass measuring 1cm: Highly suspect malignancy Will follow up with PET/CT outpatient in [facility] 7. CoVID infection: Since the patient has been symptomatic for more than 10 days from COVID- pneumonia, will not initiate Paxlovid or Remdesivir Isolation: airborne and contact Supplemental oxygen therapy as needed 8. Hypokalemia: Potassium chloride oral replacement CMP daily to trend serum potassium level. Also check serum Mg level and replace as needed 9. Depression: DDx: Grief from losing last year Lexapro 10. Constipation: Colace Senna Miralax Milk of Magnesia Lactulose Dulcolax suppository Fleet enema GI ppx: not currently indicated DVT ppx: Eliquis Code status: Full Prognosis: Stable Disposition: Inpatient med surg tele; SNF Time Spent With Patient Time: Total time spent is greater than 50% in coordination of care (as documented) at patient's floor/unit and/or counseling patient: Subsequent: Total time with patient: 35 - 49 minutes QUALITY VTE Deep Vein Thrombosis/Pulmonary Embolism Present on Admission: No
[2022-07-25] MEDS: POTASSIUM CHLORIDE 20 MEQ TABLET PO SCH ×2 (09:23→18:06)
[2022-07-25] MEDS: METOPROLOL SUCCINATE 50 MG TAB.XL.24H PO SCH ×2 (09:29→21:35)
[2022-07-25] MEDS: MEGESTROL ACETATE 400 MG/10 ML UDC PO SCH (09:29)
[2022-07-25] MEDS: VITAMIN D3 25 MCG TABLET PO SCH (09:29)
[2022-07-25] MEDS: HYDROCHLOROTHIAZIDE 12.5 MG CAPSULE PO SCH (09:29)
[2022-07-25] MEDS: SENNOSIDES 1 TABLET PO PRN (09:29)
[2022-07-25] MEDS: ESCITALOPRAM 10 MG TABLET PO SCH (09:29)
[2022-07-25] MEDS: DOCUSATE SODIUM 100 MG CAPSULE PO SCH ×2 (09:29→21:33)
[2022-07-25] MEDS: MULTIVIT,THER IRON,CA,FA & MIN 1 TABLET PO SCH (09:29)
[2022-07-25] MEDS: APIXABAN 5 MG TABLET PO SCH ×2 (09:29→21:35)
[2022-07-25] MEDS: POLYETHYLENE GLYCOL 3350 17 GM PACKET PO PRN (09:29)
[2022-07-25] MEDS: MIDODRINE 5 MG TABLET PO SCH ×2 (09:29→18:06)
[2022-07-25] MEDS: MAGNESIUM HYDROXIDE 30 ML ORAL.SUSP PO PRN (09:30)
[2022-07-25] MEDS: TOFACITINIB 5 MG PO SCH (09:37)
[2022-07-25] MEDS: SODIUM CHLORIDE 1 GM TABLET PO SCH ×3 (09:38→21:35)
[2022-07-25] MEDS: IBUPROFEN 600 MG TABLET PO PRN ×2 (09:58→21:33)
[2022-07-25] MEDS: DIGOXIN 125 MCG TABLET PO SCH (14:08)
[2022-07-25] MEDS: diphenhydrAMINE 25 MG CAPSULE PO PRN (21:34)
[2022-07-25] MEDS: traZODone HCL 50 MG TABLET PO SCH (21:35)
[2022-07-26] MEDS: 0.9 % SODIUM CHLORIDE 10 ML SYRINGE IV SCH ×3 (05:35→21:40)
[2022-07-26] MEDS: IBUPROFEN 600 MG TABLET PO PRN ×2 (05:36→11:48)
[2022-07-26] MEDS: PANTOPRAZOLE 40 MG TABLET PO SCH (08:06)
[2022-07-26] MEDS: MAGNESIUM HYDROXIDE 30 ML ORAL.SUSP PO PRN (08:06)
[2022-07-26] MEDS: APIXABAN 5 MG TABLET PO SCH ×2 (08:07→21:39)
[2022-07-26] MEDS: HYDROCHLOROTHIAZIDE 12.5 MG CAPSULE PO SCH (08:07)
[2022-07-26] MEDS: DOCUSATE SODIUM 100 MG CAPSULE PO SCH (08:07)
[2022-07-26] MEDS: ESCITALOPRAM 10 MG TABLET PO SCH (08:07)
[2022-07-26] MEDS: TOFACITINIB 5 MG PO SCH (08:08)
[2022-07-26] MEDS: MEGESTROL ACETATE 400 MG/10 ML UDC PO SCH (08:11)
[2022-07-26] MEDS: MULTIVIT,THER IRON,CA,FA & MIN 1 TABLET PO SCH (10:20)
[2022-07-26] MEDS: SODIUM CHLORIDE 1 GM TABLET PO SCH ×3 (10:20→21:39)
[2022-07-26] MEDS: VITAMIN D3 25 MCG TABLET PO SCH (10:20)
[2022-07-26] MEDS: POTASSIUM CHLORIDE 20 MEQ TABLET PO SCH ×2 (10:20→17:57)
[2022-07-26] MEDS: MIDODRINE 5 MG TABLET PO SCH ×2 (10:20→17:58)
[2022-07-26] MEDS: METOPROLOL SUCCINATE 50 MG TAB.XL.24H PO SCH ×2 (10:21→21:39)
[2022-07-26] MEDS: ACETAMINOPHEN 325 MG TABLET PO PRN ×2 (11:48→19:49)
--- NOTE | 2022-07-26 14:23 | Internal Med Progress Note ---
SUBJECTIVE Subjective Patient information: Note initiated : 07/26/22 at 2:12 pm Service Date, if different from initiated Date: [] Patient: Alo Archibald 86 y/o M admitted on 07/21/22 for weakness, N. Chief Complaint: [] Interval history: 86 yo male with afib, BPH, RA, "skin cancer." He presented with 30 lb weight loss, fatigue, weakness x 1-2 months. He also complained of headaches. Workup notable for COVID 19 and a spiculated mass in the RUL and hyponatremia. Jul 26, I assumed care from the prior Hospitalist. CT Head ordered in light of spiculated lung mass, weight loss, and headache. He still requires outpatient workup of lung mass. He is on room air. He will likely need SNF placement. Constitutional Vitals: Vital Signs Temp Pulse Resp BP Pulse Ox O2 Del Method O2 Flow Rate 98.1 F 110 H 17 102/76 100 Room Air 0 07/26/22 12:01 07/22/22 18:47 07/26/22 12:01 07/26/22 12:01 07/26/22 12:01 07/26/22 12:01 07/26/22 05:00 Period Temp Pulse Resp BP Sys/Suarez Pulse Ox O2 Del Method O2 Flow Rate Last 24 Hr 98.1 F-98.9 F 11- 93-135/63-94 98-100 Room Air-Room Air 0- 0 Intake and Output 07/26/22 07/26/22 07/26/22 03:59 11:59 19:59 Intake Total 500 Output Total 275 200 Balance -275 300 Weight 77.564 kg Intake & Output: Intake & Output 07/26/22 07/26/22 07/26/22 03:59 11:59 19:59 Intake Total 500 Output Total 275 200 Balance -275 300 Weight 77.564 kg Intake: Nourishment/Supplement quantity 250 (ml) Oral 250 Output: Void Amount 275 200 Other: Nourishment/Supplement name ensure Urine Appearance Clear Clear Urine Color Yellow Bright Yellow Urine Odor Normal Normal Stool Size Small Smear Stool Color Brown Brown Stool Consistency Soft Liquid Loose # Voids 1 1 # Bowel Movements 1 1 # of times incontinent of 1 1 Bowels General appearance: average body habitus and no acute distress Head Head exam: Present atraumatic, normal inspection and normocephalic Respiratory Respiratory exam: Present normal respiratory exam and CTAB; Absent accessory muscle use or wheezes Cardiovascular Cardiovascular exam: Present normal rate and rhythm GI/Abdominal GI/Abdominal exam: Present normal bowel sounds and soft; Absent distended Neurological Exam Neurological exam: Present CN II-XII intact and oriented X3 Additional comments: flat affect OBJ DATA Labs 07/25/22 06:10 07/25/22 06:10 Labs: Abnormal Lab Results 07/25/22 07/25/22 07/24/22 06:10 06:10 06:09 RBC MPV 8.5 L Immature Gran % (Auto) 0.7 H Lymph # (Auto) 1.43 L Sodium 131 L Creatinine 0.6 L ALT 47 H Albumin 3.1 L 3.0 L 07/24/22 06:09 RBC 4.56 L MPV 8.7 L Immature Gran % (Auto) Lymph # (Auto) 1.23 L Sodium Creatinine ALT Albumin Meds: Medications Acetaminophen (Acetaminophen 325 Mg Tablet) 650 mg PO Q6HP PRN; Protocol PRN Reason: Per Pain Protocol/Fever > 101 Last Admin: 07/26/22 11:48 Dose: 650 mg Albuterol/Ipratropium (Ipratropium/Albuterol 3 Ml Ampul.Neb) 3 ml NEB Q4HRT PRN PRN Reason: Wheezing Apixaban (Apixaban 5 Mg Tablet) 5 mg PO BID [facility] Last Admin: 07/26/22 08:07 Dose: 5 mg Bisacodyl (Bisacodyl 10 Mg Supp.Rect) 10 mg FL DAILYP PRN PRN Reason: Constipation Digoxin (Digoxin 125 Mcg Tablet) 125 mcg PO DAILY@1400 [facility] Last Admin: 07/25/22 14:08 Dose: 125 mcg Diphenhydramine HCl (Diphenhydramine 25 Mg Capsule) 25 mg PO HSP PRN PRN Reason: Insomnia Last Admin: 07/25/22 21:34 Dose: 25 mg Escitalopram Oxalate (Escitalopram 10 Mg Tablet) 10 mg PO DAILY [facility] Last Admin: 07/26/22 08:07 Dose: 10 mg Hydrochlorothiazide (Hydrochlorothiazide 12.5 Mg Capsule) 12.5 mg PO DAILY [facility] Last Admin: 07/26/22 08:07 Dose: 12.5 mg Hydrocortisone (Hydrocortisone Crm 0.5% 30 Gm Tube) 1 gm TOPICAL BIDP PRN PRN Reason: Itching Ibuprofen (Ibuprofen 600 Mg Tablet) 600 mg PO QIDP PRN; Protocol PRN Reason: Headache Last Admin: 07/26/22 11:48 Dose: 600 mg Iron Carb/Multivit/[place]/Folic Acid (Multivit,Ther Iron,Ca,Fa & Min 1 Tablet) 1 tab PO QDAY [facility] Last Admin: 07/26/22 10:20 Dose: 1 tab Lactulose (Lactulose 20 Gm/30 Ml Oral.Aileen) 10 gm PO DAILYP PRN PRN Reason: Constipation Magnesium Hydroxide (Magnesium Hydroxide 30 Ml Oral.Susp) 30 ml PO BIDP PRN PRN Reason: Constipation Last Admin: 07/26/22 08:06 Dose: 30 ml Megestrol Acetate (Megestrol Acetate 400 Mg/10 Ml Udc) 400 mg PO DAILY [facility] Last Admin: 07/26/22 08:11 Dose: 400 mg Metoprolol Succinate (Metoprolol Succinate 50 Mg Tab.Xl.24h) 50 mg PO BID [facility] Last Admin: 07/26/22 10:21 Dose: 50 mg Metoprolol Tartrate (Metoprolol Tartrate 5 Mg/5 Ml Vial) 5 mg IV Q1HP PRN PRN Reason: Tachyarrhythmias Midodrine (Midodrine 5 Mg Tablet) 5 mg PO BID@0900,1800 [facility] Last Admin: 07/26/22 10:20 Dose: 5 mg Mineral Oil (Mineral Oil 1 Dose Enema) 1 dose FL ONCE PRN PRN Reason: Constipation Ondansetron HCl (Ondansetron 4 Mg/2 Ml Vial) 4 mg IV Q4HP PRN; Protocol PRN Reason: Nausea And Vomiting Pantoprazole Sodium (Pantoprazole 40 Mg Tablet) 40 mg PO QAMAC [facility] Last Admin: 07/26/22 08:06 Dose: 40 mg Silodosin 4 Mg (Capsule) 1 dose PO QDAY [facility] Last Admin: 07/26/22 08:09 Dose: 1 dose Tofacitinib [Xeljanz (] 5 Mg Tablet) 1 dose PO QDAY [facility] Last Admin: 07/26/22 08:08 Dose: 1 dose Polyethylene Glycol (Polyethylene Glycol 3350 17 Gm Packet) 17 gm PO DAILYP PRN PRN Reason: Constipation Last Admin: 07/24/22 17:54 Dose: 17 gm Potassium Chloride (Potassium Chloride 20 Meq Tablet) 20 meq PO BIDCC [facility] Last Admin: 07/26/22 10:20 Dose: 20 meq Sodium Chloride (0.9 % Sodium Chloride 10 Ml Syringe) 10 ml IV Q8 [facility] Last Admin: 07/26/22 05:35 Dose: 10 ml Sodium Chloride (Sodium Chloride 1 Gm Tablet) 1 gm PO TID [facility] Last Admin: 07/26/22 10:20 Dose: 1 gm Trazodone HCl (Trazodone Hcl 50 Mg Tablet) 50 mg PO QHS [facility] Last Admin: 07/25/22 21:35 Dose: Not Given Vitamin D (Vitamin D3 25 Mcg Tablet) 25 mcg PO QDAY [facility] Last Admin: 07/26/22 10:20 Dose: 25 mcg A/P Assessment and plan (1) COVID: Assessment and plan: - on room air - supportive care Status: Acute (2) Mass of lung: Assessment and plan: - spiculated RUL mass - also c/o headache - CT Head pending - will need outpatient Bx/PET CT - Pt noted 30 lb unintentional weight loss Status: Acute (3) Hyponatremia: Assessment and plan: - improved, possibly secondary to lung mass - stop HCTZ Status: Acute (4) Atrial fibrillation: Assessment and plan: - continue metoprolol, digoxin, apixaban Status: Acute (5) BPH (benign prostatic hyperplasia): Assessment and plan: - continue silodosin Status: Acute (6) Rheumatoid arthritis: Assessment and plan: - tofacitinib Status: Acute (7) Depression: Assessment and plan: - escitalopram Status: Acute Time Spent With Patient Time: Total time spent is greater than 50% in coordination of care (as documented) at patient's floor/unit and/or counseling patient: Subsequent: Total time with patient: 25 - 34 minutes QUALITY VTE Deep Vein Thrombosis/Pulmonary Embolism Present on Admission: No
--- NOTE | 2022-07-26 15:11 | Internal Medicine Consult Note ---
HPI Date of Consult Consult Date: 07/26/22 Primary Care Provider: Bonny Santos Consult Narrative Patient Information: Note initiated : 07/26/22 at 2:12 pm Service Date, if different from initiated Date: [] Patient: Alo Archibald 86 y/o M admitted on 07/21/22 for weakness, N. Chief Complaint: [] Chief complaint: note entered in error. Disregard. cc:: CC: Lalit Cameron MD [facility] All Active Problems (Updated 07/26/22 @ 14:19 by Dale Winter MD) Mass of lung (Acute) Constipation (Acute) Depression (Acute) Hypokalemia (Acute) COVID (Acute) Mass of upper lobe of right lung (Acute) Rheumatoid arthritis (Acute) BPH (benign prostatic hyperplasia) (Acute) Atrial fibrillation (Acute) Hyponatremia (Acute) Weakness (Acute) Social History smoking status: Never smoker MEDS/ALLERGIES Home Medications and Allergies Home Medications Medication Instructions Recorded Confirmed Type Alive Men's 50 Plus Multivit 1 tab PO QDAY 07/20/22 07/21/22 History apixaban 5 mg tablet (Eliquis) 5 mg PO BID 07/20/22 07/21/22 History [id number] 1 tab PO HS 07/20/22 07/21/22 History cholecalciferol (vitamin D3) 25 25 mcg PO QDAY 07/20/22 07/21/22 History mcg (1,000 unit) capsule (Vitamin D3) copper 2 mg tablet 2 mg PO QDAY 07/20/22 07/21/22 History digoxin 125 mcg (0.125 mg) tablet 125 mcg PO QDAY 07/20/22 07/21/22 History diphenhydramine 25 2 tab PO HS PRN Insomnia 07/20/22 07/21/22 History mg-acetaminophen 500 mg tablet (Tylenol PM Extra Strength) docusate sodium 100 mg capsule 100 mg PO QDAY 07/20/22 07/21/22 History lutein-zeaxanthin 1 tab PO QDAY 07/20/22 07/21/22 History midodrine 5 mg tablet 5 mg PO BID 07/20/22 07/21/22 History ondansetron 4 mg disintegrating 4 mg PO Q8H PRN Nausea 07/20/22 07/21/22 History tablet pantoprazole 40 mg tablet,delayed 40 mg PO QDAY 07/20/22 07/21/22 History release silodosin 4 mg capsule 4 mg PO QDAY 07/20/22 07/21/22 History tofacitinib 5 mg tablet (Xeljanz) 5 mg PO QDAY 07/20/22 07/21/22 History trazodone 50 mg tablet 50 mg PO QHS 07/20/22 07/21/22 History metoprolol succinate 25 mg 25 mg PO QDAY 07/21/22 07/21/22 History tablet,extended release 24 hr vitamin C-vitamin E capsule 1 cap PO QAM 07/21/22 07/21/22 History Allergies Allergy/AdvReac Type Severity Reaction Status Date / Time No Known Drug Allergies Allergy Unverified 07/20/22 15:20 EXAM Constitutional Vitals: Temp Pulse Resp BP Pulse Ox O2 Del Method O2 Flow Rate 98.1 F 110 H 17 102/76 100 Room Air 0 07/26/22 12:01 07/22/22 18:47 07/26/22 12:01 07/26/22 12:01 07/26/22 12:01 07/26/22 12:01 07/26/22 05:00 A/P Time Spent With Patient Time: Total time spent is greater than 50% in coordination of care (as documented) at patient's floor/unit and/or counseling patient:
[2022-07-26] MEDS: DIGOXIN 125 MCG TABLET PO SCH (15:27)
[2022-07-26] MEDS ORDERED: IOPAMIDOL 100 ML BOTTLE IV ONE (16:54)
--- NOTE | 2022-07-26 17:18 | Cat Scan Report ---
CLINICAL INFORMATION: Headache and confusion. Known lung mass COMPARISON: None. TECHNIQUE: 2.5 mm helical slices were obtained in the skull base to vertex prior to, and after, the administration of 50 cc of Isovue-370. Following reconstruction, axial reformatted images were reviewed at bone and parenchymal windows. The exam was performed using radiation dose optimization techniques including, but not limited to, automated exposure control, adjustment of the mA and/or kV according to patient size and use of iterative reconstruction technique. FINDINGS: The ventricles, sulci, fissures, and cisterns are symmetrically enlarged compatible with mild age-related atrophy. No extra-axial fluid collections are identified. Mild patchy chronic ischemic changes, in the deep cerebral white matter, are expected for age. Small region of encephalomalacia is seen in the lateral left temporal lobe. There is no hemorrhage, mass effect, edema or abnormal enhancement to suggest metastases.. Bone windows show left frontal craniotomy changes. Moderate air-fluid levels present in both maxillary sphenoid sinuses with subtotal opacification of all ethmoid air cells large air-fluid levels in both frontal sinuses IMPRESSION: Mild atrophy and chronic ischemic changes in the deep cerebral white matter-expected for age. Small region of encephalomalacia in the lateral left temporal lobe. No metastases. Severe pansinusitis. This may be the cause for headaches Interpreted and Authenticated by: Miguel Sharif 07/26/22
[2022-07-26] MEDS: traZODone HCL 50 MG TABLET PO SCH (21:39)
[2022-07-26] MEDS: diphenhydrAMINE 25 MG CAPSULE PO PRN (21:39)
[2022-07-27] MEDS: 0.9 % SODIUM CHLORIDE 10 ML SYRINGE IV SCH ×3 (05:57→20:59)
[2022-07-27] MEDS: ACETAMINOPHEN 325 MG TABLET PO PRN ×3 (06:35→20:58)
[2022-07-27 07:05] LABS: Phosphorous 3.2 mg/dL (2.5-4.5)
[2022-07-27 07:07] LABS: Blood Urea Nitrogen 14 mg/dL (8-23); Calcium 9.2 mg/dL (8.6-10.4); Carbon Dioxide 23 mmol/L (22-30); Chloride 94 mmol/L (96-108); Glomerular Filtration Rate 85; Glucose 84 mg/dL (70-105)
[2022-07-27] MEDS ORDERED: PSEUDOEPHEDRINE 30 MG TABLET PO SCH (09:07)
[2022-07-27] MEDS: SODIUM CHLORIDE 1 GM TABLET PO SCH ×3 (09:17→20:57)
[2022-07-27] MEDS: ESCITALOPRAM 10 MG TABLET PO SCH (09:17)
[2022-07-27] MEDS: MEGESTROL ACETATE 400 MG/10 ML UDC PO SCH (09:17)
[2022-07-27] MEDS: MIDODRINE 5 MG TABLET PO SCH ×2 (09:17→17:42)
[2022-07-27] MEDS: VITAMIN D3 25 MCG TABLET PO SCH (09:17)
[2022-07-27] MEDS: APIXABAN 5 MG TABLET PO SCH ×2 (09:17→20:57)
[2022-07-27] MEDS: MULTIVIT,THER IRON,CA,FA & MIN 1 TABLET PO SCH (09:17)
[2022-07-27] MEDS: METOPROLOL SUCCINATE 50 MG TAB.XL.24H PO SCH ×2 (09:17→20:58)
[2022-07-27] MEDS: POTASSIUM CHLORIDE 20 MEQ TABLET PO SCH ×2 (09:18→17:42)
[2022-07-27] MEDS: PANTOPRAZOLE 40 MG TABLET PO SCH (09:19)
[2022-07-27] MEDS ORDERED: OXYMETAZOLINE 1 NASAL SPRAY BOTTLE NAS PRN (09:26)
[2022-07-27] MEDS: AMOXICILLIN/POTASSIUM CLAV 875 MG TABLET PO SCH ×2 (09:33→17:42)
[2022-07-27] MEDS: TOFACITINIB 5 MG PO SCH (09:39)
[2022-07-27] MEDS: DIGOXIN 125 MCG TABLET PO SCH (14:38)
--- NOTE | 2022-07-27 15:35 | Internal Med Progress Note ---
SUBJECTIVE Subjective Patient information: Note initiated : 07/27/22 at 3:30 pm Service Date, if different from initiated Date: [] Patient: Alo Archibald 86 y/o M admitted on 07/21/22 for weakness, N. Chief Complaint: [] Interval history: 86 yo male with afib, BPH, RA, "skin cancer." He presented with 30 lb weight loss, fatigue, weakness x 1-2 months. He also complained of headaches. Workup notable for COVID 19 and a spiculated mass in the RUL and hyponatremia. Jul 26, I assumed care from the prior Hospitalist. CT Head ordered in light of spiculated lung mass, weight loss, and headache. He still requires outpatient workup of lung mass. He is on room air. He will likely need SNF placement. Jul 27, CT Head negative for mets but positive for pansinusitis. Pt reports sinusitis Sx x 2 mos. Decongestants and Amox-Clav ordered. Will DC to SNF tomorrow. Constitutional Vitals: Vital Signs Temp Pulse Resp BP Pulse Ox O2 Del Method O2 Flow Rate 98.2 F 120 H 15 100/75 99 Room Air 0 07/27/22 12:57 07/27/22 00:00 07/27/22 12:57 07/27/22 12:57 07/27/22 12:57 07/27/22 12:57 07/26/22 05:00 Period Temp Pulse Resp BP Sys/Suarez Pulse Ox O2 Del Method O2 Flow Rate Last 24 Hr 98.1 F-98.7 F 120 12-20 100-150/71-95 95-100 Room Air-Room Air Intake and Output 07/27/22 07/27/22 07/27/22 03:59 11:59 19:59 Intake Total 120 60 Output Total 600 775 Balance -600 -655 60 Intake & Output: Intake & Output 07/27/22 07/27/22 07/27/22 03:59 11:59 19:59 Intake Total 120 60 Output Total 600 775 Balance -600 -655 60 Intake: Oral 120 60 Output: Void Amount 600 775 Other: Meal Breakfast Lunch Percent of Meal Consumed 100% bites Feeding Ability Independent Assist with Tray Set Up Urine Appearance Clear Clear Urine Color Bright Yellow Yellow General appearance: no acute distress Head Head exam: Present atraumatic, normal inspection and normocephalic ENT ENT exam: Present mucous membranes moist Respiratory Respiratory exam: Present normal respiratory exam and CTAB Cardiovascular Cardiovascular exam: Present normal rate and rhythm GI/Abdominal GI/Abdominal exam: Present normal bowel sounds and soft; Absent distended Neurological Exam Neurological exam: Present CN II-XII intact and oriented X3 OBJ DATA Labs 07/25/22 06:10 07/27/22 05:37 Labs: Abnormal Lab Results 07/27/22 07/25/22 07/25/22 05:37 06:10 06:10 MPV 8.5 L Immature Gran % (Auto) 0.7 H Lymph # (Auto) 1.43 L Sodium 128 L 131 L Chloride 94 L ALT 47 H Albumin 3.1 L Meds: Medications Acetaminophen (Acetaminophen 325 Mg Tablet) 650 mg PO Q6HP PRN; Protocol PRN Reason: Per Pain Protocol/Fever > 101 Last Admin: 07/27/22 14:40 Dose: 650 mg Albuterol/Ipratropium (Ipratropium/Albuterol 3 Ml Ampul.Neb) 3 ml NEB Q4HRT PRN PRN Reason: Wheezing Amoxicillin/Clavulanate Potassium (Amoxicillin/Potassium Clav 875 Mg Tablet) [facility] Protocol Stop: 08/03/22 07:59 Last Admin: 07/27/22 09:33 Dose: 875 mg Apixaban (Apixaban 5 Mg Tablet) 5 mg PO BID [facility] Last Admin: 07/27/22 09:17 Dose: 5 mg Bisacodyl (Bisacodyl 10 Mg Supp.Rect) [address] DAILYP PRN PRN Reason: Constipation Digoxin (Digoxin 125 Mcg Tablet) 125 mcg PO DAILY@1400 [facility] Last Admin: 07/27/22 14:38 Dose: 125 mcg Diphenhydramine HCl (Diphenhydramine 25 Mg Capsule) 25 mg PO HSP PRN PRN Reason: Insomnia Last Admin: 07/26/22 21:39 Dose: 25 mg Escitalopram Oxalate (Escitalopram 10 Mg Tablet) 10 mg PO DAILY [facility] Last Admin: 07/27/22 09:17 Dose: 10 mg Hydrocortisone (Hydrocortisone Crm 0.5% 30 Gm Tube) 1 gm TOPICAL BIDP PRN PRN Reason: Itching Iron Carb/Multivit/[place]/Folic Acid (Multivit,Ther Iron,Ca,Fa & Min 1 Tablet) 1 tab PO QDAY [facility] Last Admin: 07/27/22 09:17 Dose: 1 tab Lactulose (Lactulose 20 Gm/30 Ml Oral.Aileen) 10 gm PO DAILYP PRN PRN Reason: Constipation Lactulose (Lactulose 20 Gm/30 Ml Oral.Aileen) 30 gm PO TID [facility] Magnesium Hydroxide (Magnesium Hydroxide 30 Ml Oral.Susp) 30 ml PO BIDP PRN PRN Reason: Constipation Last Admin: 07/26/22 08:06 Dose: 30 ml Megestrol Acetate (Megestrol Acetate 400 Mg/10 Ml Udc) 400 mg PO DAILY [facility] Last Admin: 07/27/22 09:17 Dose: 400 mg Metoprolol Succinate (Metoprolol Succinate 50 Mg Tab.Xl.24h) 50 mg PO BID [facility] Last Admin: 07/27/22 09:17 Dose: 50 mg Metoprolol Tartrate (Metoprolol Tartrate 5 Mg/5 Ml Vial) 5 mg IV Q1HP PRN PRN Reason: Tachyarrhythmias Last Admin: 07/27/22 15:15 Dose: 5 mg Midodrine (Midodrine 5 Mg Tablet) 5 mg PO BID@0900,1800 [facility] Last Admin: 07/27/22 09:17 Dose: 5 mg Mineral Oil (Mineral Oil 1 Dose Enema) [address] ONCE PRN PRN Reason: Constipation Ondansetron HCl (Ondansetron 4 Mg/2 Ml Vial) 4 mg IV Q4HP PRN; Protocol PRN Reason: Nausea And Vomiting Last Admin: 07/27/22 15:06 Dose: 4 mg Oxymetazoline HCl (Oxymetazoline 1 Nasal [place] Bottle) 2 spray YAW UD PRN PRN Reason: sinusitis Stop: 07/30/22 09:25 Last Admin: 07/27/22 13:42 Dose: 2 spray Pantoprazole Sodium (Pantoprazole 40 Mg Tablet) 40 mg PO QAMAC [facility] Last Admin: 07/27/22 09:19 Dose: 40 mg Silodosin 4 Mg (Capsule) 1 dose PO QDAY [facility] Last Admin: 07/27/22 09:39 Dose: 1 dose Tofacitinib [Xeljanz (] 5 Mg Tablet) 1 dose PO QDAY [facility] Last Admin: 07/27/22 09:39 Dose: 1 dose Polyethylene Glycol (Polyethylene Glycol 3350 17 Gm Packet) 17 gm PO DAILYP PRN PRN Reason: Constipation Last Admin: 07/24/22 17:54 Dose: 17 gm Potassium Chloride (Potassium Chloride 20 Meq Tablet) 20 meq PO BIDCC [facility] Last Admin: 07/27/22 09:18 Dose: 20 meq Sodium Chloride (0.9 % Sodium Chloride 10 Ml Syringe) 10 ml IV Q8 [facility] Last Admin: 07/27/22 14:38 Dose: 10 ml Sodium Chloride (Sodium Chloride 1 Gm Tablet) 1 gm PO TID [facility] Last Admin: 07/27/22 14:38 Dose: 1 gm Trazodone HCl (Trazodone Hcl 50 Mg Tablet) 50 mg PO QHS [facility] Last Admin: 07/26/22 21:39 Dose: 50 mg Vitamin D (Vitamin D3 25 Mcg Tablet) 25 mcg PO QDAY [facility] Last Admin: 07/27/22 09:17 Dose: 25 mcg A/P Assessment and plan (1) COVID: Assessment and plan: - on room air Status: Acute (2) Mass of lung: Assessment and plan: - spiculated RUL mass - will need outpatient Bx/PET CT - Pt noted 30 lb unintentional weight loss Status: Acute (3) Hyponatremia: Assessment and plan: - stopped HCTZ - may also be secondary to lung mass Status: Acute (4) Atrial fibrillation: Assessment and plan: - continue metoprolol, digoxin, apixaban Status: Acute (5) BPH (benign prostatic hyperplasia): Assessment and plan: - continue silodosin Status: Acute (6) Rheumatoid arthritis: Assessment and plan: - tofacitinib Status: Acute (7) Depression: Assessment and plan: - escitalopram Status: Acute Time Spent With Patient Time: Total time spent is greater than 50% in coordination of care (as documented) at patient's floor/unit and/or counseling patient: QUALITY VTE Deep Vein Thrombosis/Pulmonary Embolism Present on Admission: No
[2022-07-27] MEDS: diphenhydrAMINE 25 MG CAPSULE PO PRN (20:57)
[2022-07-27] MEDS: traZODone HCL 50 MG TABLET PO SCH (20:58)
[2022-07-27] MEDS ORDERED: LACTULOSE 20 GM/30 ML ORAL.SOL PO SCH (21:00)
[2022-07-28] MEDS: ACETAMINOPHEN 325 MG TABLET PO PRN (03:53)
[2022-07-28] MEDS: 0.9 % SODIUM CHLORIDE 10 ML SYRINGE IV SCH (05:39)
[2022-07-28] MEDS: PANTOPRAZOLE 40 MG TABLET PO SCH (07:24)
--- NOTE | 2022-07-28 08:02 | Discharge Summary ---
Discharge Provider Provider IMPORTANT FOLLOW-UP INFORMATION FOR PCP: Patient information: Note initiated : 07/28/22 at 7:59 am Service Date, if different from initiated Date: [] Patient: Alo Archibald 86 y/o M admitted on 07/21/22 for weakness, N. Chief Complaint: [] Date of admission: 07/21/22 10:32 Discharge date: 07/28/22 Primary care physician: Bonny Santos Admitting clinician: Lalit Cameron Attending physician on admission: Lalit Cameron Consults: 07/21/22 07:05 Consult to Physician [CONS] Routine Comment: Consulting Provider: Lalit Cameron Reason For Exam: Physician to Consult Attending physician on discharge: francine winter md Discharging clinician: francine winter md COURSE Hospital Course Hospital course: 86 yo male with afib, BPH, RA, "skin cancer." He presented with 30 lb weight loss, fatigue, weakness x 1-2 months. He also complained of headaches. Workup notable for COVID 19 and a spiculated mass in the RUL and hyponatremia. Jul 26, I assumed care from the prior Hospitalist. CT Head ordered in light of spiculated lung mass, weight loss, and headache. He still requires outpatient workup of lung mass. He is on room air. He will likely need SNF placement. Jul 27, CT Head negative for mets but positive for pansinusitis. Pt reports sinusitis Sx x 2 mos. Decongestants and Amox-Clav ordered. Will DC to SNF tomorrow. Jul 28, discharged to SNF. Pt aware that he requires further follow up and evaluation of the spiculated lung mass identified this admission. Discharge diagnosis: covid Secondary discharge diagnosis: lung mass Time Spent with Patient Time attestation: Total time spent providing and/or coordinating discharge services: Time spent: Less than 30 minutes EXAM Constitutional Vitals: Temp Pulse Resp BP Pulse Ox O2 Del Method O2 Flow Rate 97.5 F 104 H 28 H 126/88 97 Room Air 0 07/28/22 07:38 07/27/22 23:25 07/28/22 07:38 07/28/22 07:38 07/27/22 23:25 07/28/22 07:38 07/26/22 05:00 Discharge Plan Patient/Caregiver Discharge Instructions Activity: increase activity as tolerated Diet: Regular Diet Prescriptions: New acetaminophen 325 mg Tablet 650 mg PO Q6HP PRN (Reason: Per Pain Protocol/Fever > 101) Qty: 30 0RF metoprolol succinate 50 mg Tablet Extended Release 24 Hr 50 mg PO BID Qty: 60 0RF potassium chloride [Klor-Con M20] 20 mEq Tablet,Er Particles/Crystals 20 meq PO BIDCC Qty: 10 0RF amoxicillin-pot clavulanate 875-125 mg Tablet 875 mg PO BIDCC Qty: 10 0RF escitalopram oxalate 10 mg Tablet 10 mg PO DAILY Qty: 30 0RF Continued digoxin 125 mcg (0.125 mg) Tablet 125 mcg PO QDAY Xeljanz 5 mg Tablet 5 mg PO QDAY Eliquis 5 mg Tablet 5 mg PO BID pantoprazole 40 mg Tablet,Delayed Release (Dr/Ec) 40 mg PO QDAY silodosin 4 mg Capsule 4 mg PO QDAY Rx Instructions: must administer with a meal/food docusate sodium 100 mg Capsule 100 mg PO QDAY midodrine 5 mg Tablet 5 mg PO BID Rx Instructions: hold if BP>140 Discontinued Alive Men's 50 Plus Multivit 1 tab PO QDAY cholecalciferol (vitamin D3) [Vitamin D3] 25 mcg (1,000 unit) Capsule 25 mcg PO QDAY lutein-zeaxanthin 1 tab PO QDAY copper 2 mg Tablet 2 mg PO QDAY [id number] 1 tab PO HS trazodone 50 mg Tablet 50 mg PO QHS diphenhydramine-acetaminophen [Tylenol PM Extra Strength] 25-500 mg Tablet 2 tab PO HS PRN (Reason: Insomnia) ondansetron 4 mg Tablet,Disintegrating 4 mg PO Q8H PRN (Reason: Nausea) metoprolol succinate 25 mg Tablet Extended Release 24 Hr 25 mg PO QDAY Cranberry Concentrate Capsule 1 cap PO QAM Follow Up Plan Follow up with: Bonny Santos MD [Primary Care Provider] - (Office will call you to schedule. If you do not hear from them by tuesday please reach out to them.) Patient Disposition: Xfer SNF Rehab Potential: Fair I certify that the patient requires SNF services: Yes Overall status at discharge: patient is progressing back to baseline Discharge Orders: Discharge Order (Routine); Ordered 07/28/22 Ordered By: Francine Winter QUALITY VTE Deep Vein Thrombosis/Pulmonary Embolism Present on Admission: No
[2022-07-28] MEDS: METOPROLOL SUCCINATE 50 MG TAB.XL.24H PO SCH (08:45)
[2022-07-28] MEDS: POTASSIUM CHLORIDE 20 MEQ TABLET PO SCH (08:45)
[2022-07-28] MEDS: ESCITALOPRAM 10 MG TABLET PO SCH (08:45)
[2022-07-28] MEDS: AMOXICILLIN/POTASSIUM CLAV 875 MG TABLET PO SCH (08:45)
[2022-07-28] MEDS: MULTIVIT,THER IRON,CA,FA & MIN 1 TABLET PO SCH (08:45)
[2022-07-28] MEDS: APIXABAN 5 MG TABLET PO SCH (08:45)
[2022-07-28] MEDS: MIDODRINE 5 MG TABLET PO SCH (08:46)
[2022-07-28] MEDS: VITAMIN D3 25 MCG TABLET PO SCH (08:46)
[2022-07-28] MEDS: MEGESTROL ACETATE 400 MG/10 ML UDC PO SCH (08:46)
[2022-07-28] MEDS: SODIUM CHLORIDE 1 GM TABLET PO SCH (08:57)
[2022-07-28] MEDS: TOFACITINIB 5 MG PO SCH (08:57)
[2022-07-28] MEDS: DIGOXIN 125 MCG TABLET PO SCH (13:26)
== END 2022-07-28 15:58 | DRG 178 ==
LOC: ICU 15:06 → ED 15:06 → ICU 22:15
PROVIDERS: ADMIT Internal Medicine; ATTEND Internal Medicine